=== PATIENT | male | born 1940 | race Caucasian/White ===

== ENCOUNTER 2025-01-03 15:29 | Outpatient (CLI) | payer MEDICARE, BC, SELFPAY | END 2025-01-03 15:30 | disposition home or self-care (01) | LOC: AMB 01-05 11:11 | PROVIDERS: PCP Physician Assistant; Visit Provider Internal Medicine | DX: R07.89 Other chest pain (principal) | CPT/HCPCS: A0425; A0433 ==

== ENCOUNTER 2025-01-03 16:05 | Emergency (ER) | payer MEDICARE, BC, SELFPAY ==
[2025-01-03 16:37] VITALS: BP 138/74; PULSE 50; RESP 18; TEMP 36.6; O2SAT 96
--- NOTE | 2025-01-03 16:47 | CRLHL7_ITS ---
For Patients: As a result of the Century Cures Act, medical imaging exams and procedure reports are released immediately into your electronic medical record. You may view this report before your referring provider. If you have questions, please contact your health care provider. INDICATION: Swelling around pacemaker site for 1 day. Pacemaker placed approximately 1 week ago. FINDINGS: The left upper anterior chest was scanned at the site of the pacemaker. There is a hematoma adjacent to the pacemaker that measures 7.3 x 6.1 x 3.6 cm. Dictated by Douglas Thomas MD @ 01/03/2025 6:50:07 PM (Electronically Signed)
--- NOTE | 2025-01-03 16:49 | ED.CHESTPAIN ---
HPI - Chest Pain General Chief Complaint: Chest Pain Stated Complaint: Chest Pains Time Seen by Provider: 01/03/25 16:05 History of Present Illness HPI narrative: Patient is an 84-year-old gentleman who had coronary stenting with pacemaker placement 1 week ago at [facility]. He has been doing fine with some localizes bruising over the pacemaker site but has now had swelling around the pacemaker as well as local discomfort. He has had no overt chest pain no nausea no vomiting no fevers no chills no signs of the infection. The pain does began several hours prior to arrival and the patient called for an ambulance and was brought by EMS after receiving IV fentanyl. He is now asymptomatic. He has a stable set of vital signs and is in no distress. Related Data Home Medications ?Medication ?Instructions ?Recorded ?Confirmed acetaminophen PO 01/03/25 amlodipine 5 mg tablet 5 mg PO BID 01/03/25 01/03/25 aspirin 81 mg capsule 81 mg PO DAILY 01/03/25 01/03/25 clopidogrel 75 mg tablet (Plavix) 75 mg PO DAILY 01/03/25 01/03/25 ezetimibe 10 mg tablet 10 mg PO DAILY 01/03/25 01/03/25 isosorbide mononitrate 60 mg 60 mg PO QAM 01/03/25 01/03/25 tablet,extended release 24 hr losartan 50 mg tablet (Cozaar) 50 mg PO DAILY 01/03/25 01/03/25 metoprolol tartrate 25 mg tablet 25 mg PO BID 01/03/25 01/03/25 nitroglycerin 0.4 mg sublingual 0.4 mg sublingual Q5-15M PRN 01/03/25 01/03/25 tablet rosuvastatin 40 mg sprinkle capsule 40 mg PO DAILY 01/03/25 01/03/25 Allergies Allergy/AdvReac Type Severity Reaction Status Date / Time No Known Drug Allergies Allergy Verified 01/03/25 16:37 Review of Systems Status of ROS Reports: 10 or more systems reviewed and unremarkable except as noted in History and below Exam Narrative Exam Narrative: EXAM GENERAL: Patient appears comfortable and well. EYES: No scleral icterus. ENT: Tympanic membranes and oropharynx normal. THYROID: no thyroid nodules or thyromegaly. LYMPH: No supraclavicular or cervical lymphadenopathy. SKIN: Visible skin seen during exam normal or with benign process only. EXT: No dependent lower extremity pedal edema. HEART: Regular rate and rhythm with no murmurs, rubs, or gallops. LUNGS: Clear to auscultation bilaterally with no crackles or wheezes. ABD: Soft, non tender, non distended. PSYCH: Good eye contact, speech is not pressured. Chest exam shows previous sternotomy from the distant past well as bruising and ecchymosis surrounding the pacemaker site in the left anterior chest. There is a large palpable seroma around the pacemaker site with no breakdown in the incision. Mild discomfort with palpation of the pacemaker. Const Vital Signs, click to edit/add: Vital Signs - 24 hr 01/03/25 16:37 Temperature 97.9 F Pulse Rate [Pulse Oximeter] 50 L Respiratory Rate 18 Blood Pressure [Right Upper Arm] 138/74 Pulse Oximetry 96 Oxygen Delivery Method Room Air Course Course ED Course: Did see and examine the patient. Did discuss the case with Cardiology. This time will collect blood cultures CBC basic metabolic panel and ultrasound of the chest wall. Vital Signs Vital signs: Initial Vital Signs Temperature 97.9 F 01/03/25 16:37 Temperature Source Temporal Artery Scan 01/03/25 16:37 Pulse Rate 50 L 01/03/25 16:37 Pulse Rhythm Regular 01/03/25 16:37 Respiratory Rate 18 01/03/25 16:37 Blood Pressure 138/74 01/03/25 16:37 Blood Pressure Mean 95 01/03/25 16:37 Blood Pressure Position Sitting 01/03/25 16:37 Pulse Oximetry 96 01/03/25 16:37 Oxygen Delivery Method Room Air 01/03/25 16:37 Vital Signs Temperature 97.9 F 01/03/25 16:37 Pulse Rate 50 L 01/03/25 16:37 Respiratory Rate 18 01/03/25 16:37 Blood Pressure 138/74 01/03/25 16:37 Pulse Oximetry 96 01/03/25 16:37 Oxygen Delivery Method Room Air 01/03/25 16:37 Temperature 97.9 F 01/03/25 16:37 Pulse Rate 50 L 01/03/25 16:37 Respiratory Rate 18 01/03/25 16:37 Blood Pressure 138/74 01/03/25 16:37 Pulse Oximetry 96 01/03/25 16:37 Oxygen Delivery Method Room Air 01/03/25 16:37 MDM - Chest Pain MDM Narrative Medical decision making narrative: Patient is an 84-year-old gentleman who presents with pain at his pacemaker site which was placed 1 week ago. Patient is on aspirin and Plavix as he had angioplasty with stenting at the same time. Patient has had no overt chest pain shortness a breath fevers or chills but is having mild discomfort and swelling of the pacemaker site. The pacemaker site is distended but there is no signs of infection only bruising and fluctuance. No skin breakdown no erythema. I did call and visit with [facility] and they recommended blood cultures which were collected. CBC showing normal white blood cell count and a stable hemoglobin of 10.1. Ultrasound was of limited utility but did show what appears to be a seroma versus hematoma. Per cardiology's recommendation patient will be released back to [address] [place] [address]. Will continue his current care and follow-up with Cardiology by phone next week. Lab Data Labs: Lab Results 01/03/25 Range/Units 16:47 WBC 8.55 (4.50-11.00) K/uL RBC 3.53 L (4.30-5.90) m/uL Hgb 10.1 L (13.5-17.5) gm/dL Hct 31.5 L (37.0-53.0) % MCV 89 (80-100) fL MCH 29 (26-34) pg MCHC 32 (32-36) gm/dL RDW Coeff of Lobo 12.7 (11.5-15.5) % Plt Count 203 (140-440) K/uL Neut % (Auto) 55.1 (42.0-72.0) % Lymph % (Auto) 26.9 (20-44) % [place] % (Auto) 14.2 H (0.0-11.0) % Eos % (Auto) 3.0 (0.0-7.0) % Baso % (Auto) 0.7 (0.0-3.0) % Neut # (Auto) 4.71 (1.7-7.0) K/uL Lymph # (Auto) 2.30 (0.90-2.90) K/uL [place] # (Auto) 1.20 H (0.00-0.90) K/UL Eos # (Auto) 0.26 (0.00-0.50) K/uL Baso # (Auto) 0.06 (0.00-0.30) K/uL Abs Immat Gran (auto) 0.01 (0.00-0.30) K/uL Imm/Tot Granulo (auto) 0.1 % Sodium 139 (135-149) mmol/L Potassium 4.3 (3.6-5.1) mmol/L Chloride 106 (96-114) mmol/L Carbon Dioxide 24 (20-32) mmol/L Anion Gap 9 (7-15) mEq/L BUN 19 (7-30) mg/dL Creatinine 1.0 (0.5-1.5) mg/dL Estimated Creat Clear 46.13 Estimated GFR 73 ml/min Glucose 91 (60-115) mg/dL Calcium 8.6 (8.4-10.6) mg/dL Discharge Plan Discharge Clinical Impression: Pain in pacemaker pocket Patient Disposition: Home, Self-Care Condition: Stable Additional Instructions: Continue current rehab Continue current medication. Contact Cardiology on Sunday to report the swelling Up with your doctor as needed. Activity Level: No Restrictions Discharge Diet: Regular Prescriptions: No Action acetaminophen [Tylenol] PO isosorbide mononitrate 60 mg tablet extended release 24 hr 60 mg PO QAM metoprolol tartrate 25 mg tablet 25 mg PO BID amlodipine 5 mg tablet 5 mg PO BID clopidogrel [Plavix] 75 mg tablet 75 mg PO DAILY aspirin 81 mg capsule 81 mg PO DAILY ezetimibe 10 mg tablet 10 mg PO DAILY losartan [Cozaar] 50 mg tablet 50 mg PO DAILY rosuvastatin 40 mg capsule, sprinkle 40 mg PO DAILY nitroglycerin 0.4 mg tablet, sublingual 0.4 mg sublingual Q5-15M PRN Rx Instructions: do not exceed 3 doses per episode Follow Up/Referrals: Al Harley PA [Primary Care Provider] - Stand Alone Forms: [employer] Info Instructions
[2025-01-03 17:05] LABS: Basophils Absolute Auto 0.06 K/uL (0.00-0.30); Basophils Percent Auto 0.7 % (0.0-3.0); Eosinophils Absolute Auto 0.26 K/uL (0.00-0.50); Hematocrit 31.5 % (37.0-53.0); Hemoglobin* 10.1 gm/dL (13.5-17.5); Immature Granulocytes Abs Auto 0.01 K/uL (0.00-0.30); Immature Granulocytes Pct Auto 0.1 %; Lymphocytes Percent Auto 26.9 % (20-44); Mean Corpuscular HGB Conc 32 gm/dL (32-36); Mean Corpuscular Hemoglobin 29 pg (26-34); Mean Corpuscular Volume 89 fL (80-100); Monocytes Percent Auto 14.2 % (0.0-11.0); Neutrophils Absolute Auto 4.71 K/uL (1.7-7.0); Neutrophils Percent Auto 55.1 % (42.0-72.0); Platelet Count* 203 K/uL (140-440); RDW Coefficient of Variation % 12.7 % (11.5-15.5); Red Blood Count 3.53 m/uL (4.30-5.90); White Blood Count* 8.55 K/uL (4.50-11.00)
[2025-01-03 17:06] LABS: Slide Review Reflex No
[2025-01-03 17:21] LABS: Chloride* 106 mmol/L (96-114); Sodium* 139 mmol/L (135-149)
[2025-01-03 17:22] LABS: Potassium* 4.3 mmol/L (3.6-5.1)
[2025-01-03 17:24] LABS: Blood Urea Nitrogen* 19 mg/dL (7-30); Est. Creatinine Clearance* 46.13; Estimated Glomerular Filt Rate 73 ml/min
[2025-01-03 17:25] LABS: Anion Gap 9 mEq/L (7-15); Calcium* 8.6 mg/dL (8.4-10.6); Carbon Dioxide* 24 mmol/L (20-32); Glucose* 91 mg/dL (60-115)
--- OUTSIDE RECORDS SUMMARY | 2025-01-03 17:49 | XMS_ITS | Encounter Summary ---
Author Organization [facility] Address [address] [place] [address] Care Team Providers Care Sandal Parts Assembler Name Role Phone Outside, Provider Primary Care Provider Unavaila ble Provider, No Attributed RESOURCE Unavailable Unavailable Outside, Provider Primary Care Provider Unavaila ble Encounter Details Date Type Department Care Team (Late st Contact Info) Description 01/16/2018 Lab Requisition [facility] [place], [place] Joao Spencer MD [address] [place] [address] Retention of urine Social History Tobacco Use Types Packs/Day Years Used Date Smoking Tobacco: Former Cigarettes Q uit: 09/10/1959 Alcohol Use Standard Drinks/Week Comments No 0 (1 standard drink = 0.6 oz pur e alcohol) Sex and Gender Information Value Date Recorded Sex Assigned at Not on file Legal Sex Male 4:05 AM CDT Gender Identity Not on file Sexual Orientation Not on file 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 01/17/2018 11:[address] [facility] CLINIC at 1151 CDT GROSS DESCRIPTION Received is one formalin filled container labeled prostate tissue. The specimen consists of a 19 gram, 8.5 x 6.5 x 2.3 cm aggregate of velasquez-pink, rubbery, slightly granular, and irregular fragments of prostate. (ESB)11B Gross examination performed by: Eren Horvath 01/17/2018 11:[address] [facility] PATHOLOGY [facility] MICROSCOPIC DESCRIPTION Microscopic examination performed. 01/17/2018 11:[address] [facility] PATHOLOGY [facility] Clinical Information Benign prostate hypertrophy with urinary retention 01/17/2018 11:[address] [facility] PATHOLOGY [facility] CASE REPORT Surgical Pathology Report Case: [id number] Authorizing Provider: Joao Spencer MD Collected: 01/15/2018 Pathologist: uYniel Baker MD Received: 01/16/2018821 Specimen: Prostate, prostate tissue 01/17/2018 11:[address] [facility] PATHOLOGY CLINIC EMBEDDED IMAGES 01/17/2018 11:[address] [facility] PATHOLOGY [facility] Tissue SPECIMEN FROM PROSTATE / Unknown 01/15/2018 01/16/2018 8:22 AM T us Joao Spencer MD PATHOLOGY Final R esult Performing Organization Address City/State/[facility] Co de Phone Number [facility] PATHOLOGY [facility] [address] [address] documented in this encounter Visit Diagnoses Diagnosis Retention of urine Retention of urine, unspecified documented in this encounter Care Teams Sandal Parts Assembler Relationship Specialty Start Date End Date Outside, Provider PCP - General 05/20/12 08/03/19 Provider, No Attributed, RESOURCE [address] [place] [address] PCP - Attributed Provider 07/11/16 Outside, Provider PCP - General 08/04/19 documented as of this encounter
--- OUTSIDE RECORDS SUMMARY | 2025-01-03 17:49 | XMS_ITS | Clinical Summary ---
Author Organization [facility] [employer] [facility] Address [address] [address] Phone Care Team Providers Care Cardboard Cutter Name Role Phone Erendira Dotson MD Primary Care Provider [phone] Medications aspirin 81 MG chewable tablet Chew and swallow 1 Tablet one time a day. Take with food. 30 Tablet 2 08/30/2022 Active amLODIPine (Norvasc) 10 MG tablet Take 1 Tablet by mouth one time a day. 90 Tablet 1 10/18/2022 Active atorvaSTATin (Lipitor) 80 MG tablet Take 1 Tablet by mouth with supper. 90 Tablet 1 10/18/2022 Active clopidogrel (Plavix) 75 MG tablet Take 1 Tablet by mouth one time a day. 90 Tablet 3 10/18/2022 Active lisinopril (Prinivil, Zestril) 10 MG tablet Take 1 Tablet by mouth one time a day. 90 Tablet 1 10/18/2022 Active Tragacanth (Astragalus Root) Powder Active Cholecalciferol (Vitamin D3) 125 MCG (5000 UT) Tablet Chewable Take by mouth. 1 unit of Vitamin D equals 0.025 mcg of Vitamin D Active Chelated Magnesium 100 MG Tablet Take by mouth. Active [facility] TURMERIC CURCUMIN OR Take by mouth. Active [place]-3 Fatty Acids (fish oil) 1000 MG CAPSULE DELAYED RELEASE Take 1,000 mg by mouth one time a day. Active Zinc Gluconate 30 MG Tablet Take by mouth. Active isosorbide mononitrate CR (Imdur) 30 MG 24 hour tablet Take 1 Tablet by mouth one time a day. Do not crush. 31 Tablet 11 03/30/2023 Active nitroglycerin (Nitrostat) 0.[address] 1 Tablet under the tongue as needed for Chest pain. Do not crush; maximum of 3 doses in 15 minutes. 25 Tablet 3 03/30/2023 Active ezetimibe (Zetia) 10 MG tablet Take 1 Tablet by mouth one time a day. bedtime 31 Tablet 11 06/05/2023 Active NEW DRUG 1 Each. Red Grape Powder 400mg 1 tablet daily Active Active Problems Problem Noted Date Diagnosed Date Hx of non-ST elevation myocardial infarction (NS TING) 10/18/2022 Hypertension, unspecified type 10/18/2022 NSTEMI (non-ST elevated myocardial infarction) 1 10/28/2021 Immunizations Name Administration Dates Next Due TD >7yrs With Preservative 12/17/1996 Surgical History Surgery Date Site/Laterality Comments CABG, VEIN, SINGLE CARDIAC CATHETERIZATION 08/28/2022 N/A Procedure: LHC, CORONARY ANGIOGRAPHY; Surgeon: Altaf Garcia MD; Location: [address] OTHER SPATIAL SCIENTIST Medical devices from this surgery are in the Medical Devices section. CARDIAC CATHETERIZATION 08/28/2022 N/A Procedure: PCI - Graft; Surgeon: Altaf Garcia MD; Location: [address] OTHER SPATIAL SCIENTIST Medical devices from this surgery are in the Medical Devices section. 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 Gender Identity Not on file Sexual Orientation Not on file Obstetrics History Last Filed Vital Signs Vital Sign Reading Time Taken Comments Blood Pressure 163/88 01/23/2024 12:51 PM CDT Pulse 61 01/23/2024 12:48 PM CDT Temperature 36.3 C (97.4 F) 08/29/2022 10:03 AM SEPTIC TANK INSTALLER Respiratory Rate 16 01/23/2024 12:48 PM CDT Oxygen Saturation 97% 01/23/2024 12:48 PM CDT Inhaled Oxygen Concentration - - Weight 72.3 kg (159 lb 8 oz) 01/23/2024 12:48 PM CDT Height 180.3 cm (5' 11) 01/23/2024 12:48 PM CDT Body Mass Index 22.25 01/23/2024 12:48 PM CDT Plan of Treatment Health Maintenance Due Date Last Done Comments MEDICARE AWV 1938 PERTUSSIS (Standing Order) 1957 Pneumococcal Vaccine: 50+ yr s (Standing Order) (1 of 1 - PCV) 1988 Shingrix (Zoster recombinant ) vaccine (Standing Order) (1 of 2) 1988 TETANUS (Standing Order) 12/17/2006 12/17/1996 RSV Vaccination (60+ yrs) (Abrysvo/Arexvy) (1 - 1-dose 75+ series) 2013 COVID-19 Vaccine (2023-2 5 season) 2024 Influenza Vaccine Seasonal (Standing Order) (#1) 2024 HPV Vaccine (Standing Order) Aged Out No longer eligible based on patient's age to complete this topic Hepatitis B Vaccine (Standin g Order) Aged Out No longer eligible b ased on patient's age to complete this topic Medical Devices Implanted Type Area Bill Of Lading Clerk Device Identifier Shelf Expiration Date Model / Serial / Lot Stent Synergy Xd Mr 4.00 X48mm [id number] - [id number] Implanted:Qt y: 1 on 08/28/2022 by Altaf Garcia MD at [facility] Stent COURTNEY N/A: Coronary [employer] [id number] 11/30/2023 [id number] / [id number] / [id number] Insurance [employer] BCBS MEDICARE PART A & B Advance Directives For more information, please contact: [phone] * Full Code (Latest Code Status on File) Date Activated Date Inactivated Comments 08/28/2022 1:39 PM 08/29/2022 4:20 PM * Full Code/Unaddressed Date Activated Date Inactivated Comments 08/27/2022 8:00 AM 08/28/2022 1:39 PM Care Teams Cardboard Cutter Relationship Specialty Start Date End Date Erendira Dotson MD [address] [facility] [place] [address] PCP - General Family Medicine 10/18/22
--- OUTSIDE RECORDS SUMMARY | 2025-01-03 17:49 | XMS_ITS | Clinical Summary ---
Author Organization [facility] Address [address] [place] [id number] Care Team Providers Care Career Professional Name Role Phone Marvin Harley Primary Care Provid er Allergies No known active allergies Medications nitroglycerin (NITROSTAT) 0.4 mg sublingual tabletIndicatio ns:History of non-ST elevation myocardial infarction (NSTEMI) Place 1 Tablet (0.4 mg) under the tongue every 5 minutes if needed for Chest Pain. Up to 3 tablets in 15 minutes. 25 Tablet 08/20/20 24 Active aspirin chewable 81 mg chewable tablet Chew 81 mg by mouth once daily with a meal. Active cholecalciferol (Vitamin D3) (Vitamin D-3) 5,000 unit tab tablet Take 5,000 units by mouth once daily. Active BETA-GLUCAN ORAL Take by mouth once daily. Active Lactobacillus acidophilus (PROBIOTIC ORAL) Take 1 Capsule by mouth once daily. Active RED BEET ORAL Take by mouth once daily. Beet Mix supplement Active RIBOSE ORAL Take by mouth once daily. D-Ribose supplement Active clopidogreL 75 mg tabletIndicatio ns:NSTEMI (non-ST elevated myocardial infarction) (HC) Take 1 Tablet (75 mg) by mouth once daily. 90 Tablet 3 12/27/19 25 Active ezetimibe 10 mg tabletIndicatio ns:NSTEMI (non-ST elevated myocardial infarction) (HC) Take 1 Tablet (10 mg) by mouth once daily. 90 Tablet 3 12/27/19 25 Active rosuvastatin 40 mg tabletIndicatio ns:NSTEMI (non-ST elevated myocardial infarction) (HC) Take 1 Tablet (40 mg) by mouth at bedtime. 90 Tablet 3 12/26/19 25 Active amLODIPine 5 mg tabletIndicatio ns:HTN (hypertension), Coronary artery disease 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[place] heart without angina pectoris Take 1 Tablet (5 mg) by mouth two times daily. 180 Tablet 1 12/26/19 25 Active isosorbide mononitrate 60 mg extended release tablet 24 hourIndications :Coronary artery disease 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[place] heart without angina pectoris Take 1 Tablet (60 mg) by mouth once daily. 90 Tablet 1 12/27/19 25 Active losartan 50 mg tabletIndicatio ns:NSTEMI (non-ST elevated myocardial infarction) (HC),HTN (hypertension) Take 1 Tablet (50 mg) by mouth once daily. 90 Tablet 1 12/27/19 25 Active metoprolol tartrate 25 mg tabletIndicatio ns:NSTEMI (non-ST elevated myocardial infarction) (HC) Take 1 Tablet (25 mg) by mouth two times daily. 90 Tablet 3 12/29/19 25 Active hydrocortisone 1 % creamIndication s:Contact dermatitis, unspecified contact dermatitis type, unspecified trigger Apply topically to affected area(s) 2 times daily if needed for Itching for up to 7 days. 12/31/19 25 025 Active amLODIPine 10 mg tablet 10 mg once daily. 025 Discontinued( Pharmacist change per medication history (E-cancel not sent)) atorvastatin 80 mg tablet Take 80 mg by mouth once daily with evening meal. 025 Discontinued( Pharmacist change per medication history (E-cancel not sent)) clopidogreL 75 mg tablet Take 75 mg by mouth once daily. 025 Discontinued( Pharmacist change per medication history (E-cancel not sent)) lisinopriL 10 mg tablet Take 10 mg by mouth once daily. 025 Discontinued( Pharmacist change per medication history (E-cancel not sent)) Tragacanth powd Mix in liquid then take by mouth. 025 Discontinued( Pharmacist change per medication history (E-cancel not sent)) magnesium glycinate 100 mg magnesium cap Take 100 mg by mouth once daily. 025 Discontinued( Pharmacist change per medication history (E-cancel not sent)) turmeric/turmer ic ext/pepr ext (turmeric-turme alec ext-pepper) 500-3 mg cap Take 1 Capsule by mouth once daily. 025 Discontinued( Pharmacist change per medication history (E-cancel not sent)) fish oil-omega-3 fatty acids (Fish OiL) 1,200-360 mg cap Take 1 Capsule by mouth once daily. One capsule is 1200 mg-360 mg 025 Discontinued( Pharmacist change per medication history (E-cancel not sent)) isosorbide mononitrate 30 mg extended release tablet 24 Hour Take 30 mg by mouth once daily. 025 Discontinued( Pharmacist change per medication history (E-cancel not sent)) ezetimibe 10 mg tablet Take 10 mg by mouth once daily. 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 12/08/2024 S/P TURP 12/08/2024 History of non-ST elevation myocardial infarctio n (NSTEMI) 10/22/2024 Coronary artery disease invo lving [place] coronary artery of [place] heart without angina pectoris 10/22/2024 Mixed hyperlipidemia 10/22/2024 HTN (hypertension) 10/22/2024 Hx of non-ST elevation myocardial infarction (NS TING) 10/18/2022 Hypertensive disease 10/18/2022 NSTEMI (non-ST elevated myocardial infarction) 1 10/28/2021 Hydrocele 11/18/2007 Resolved Problems Problem Noted Date Diagnosed Date Resolved Date 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 08/20/2024 Encounters Date Type Department Care Team Description 01/03/2025 Telephone [facility] [address] [place] [address] FIDEL Ortiz [id number] Eduard Arrieta MD 12/27/2024 9:17 AM CDT Anesthesia Event [facility] [address] [place], [place] [id number] Brant Marcus DO 12/23/2024 1:42 AM CDT - 12/30/2024 9:58 AM CDT Hospital Encounter [facility] [address] [place] [address] [facility]ists Of [place], MD Henry Delgadillo Timothy Joseph Ngui, MD Schultz, Lorraine Luna MD NSTEMI (non-ST elevated myocardial infarction) (HC) (Primary Dx); Cardiovascular symptoms; HTN (hypertension); Coronary artery disease 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[place] heart without angina pectoris; Contact dermatitis, unspecified contact dermatitis type, unspecified trigger Discharge Disposition: Longterm Facility 12/22/2024 5:08 PM CDT - 12/23/2024 12:41 AM CDT Emergency [facility] [address] [place] [address] Bozena Burden MD Patullo, Leah Vivian, DO NSTEMI (non-ST elevated myocardial infarction) (HC) (Primary Dx); Chest pain, unspecified type Discharge Disposition: Short Term/PPS Hosp 12/22/2024 Travel 12/16/2024 Telephone [facility] [id number] [place] [id number] Vickie Yoo MD Results 12/11/2024 2:45 PM CDT Office Visit [facility] [id number] [place] [id number] Vickie Yoo MD Derm Problem 12/11/2024 Travel 12/08/2024 3:00 PM CDT Office Visit [facility] [address] [place] [address] Gentry Hernández MD Consult (Establish Care/History of TURP) 12/08/2024 Travel 10/22/2024 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 Office Visit [facility] [address] [place] [address] Laurent Trejo MD Consult 10/22/2024 Travel from Last 3 Months Immunizations Immunization Administration Dates Next Due Td (Age >=7 Years) 12/17/1996 Social History Tobacco Use Types Packs/Day Years Used Date Smoking Tobacco: Former Cigarettes S tarted: 1948 Smokeless Tobacco: Never Tobacco Cessation:Counseling Given: Not Answered Alcohol Use Standard Drinks/Week Comments Not Currently 0 (1 standard drink = 0.6 oz pur e alcohol) Social Connections Answer Date Recorded Do you often feel lonely or isolated from those around you? 0 2024 Financial Resource Strain Answer Date R ecorded Difficulty of Paying Living Expenses 3 08/20/2024 Difficulty of Paying Living Expenses Not on file 08/20/2024 Food Insecurity Answer Date Recorded Do you worry your food will run out before you are able to buy more? 1 2024 Transportation Needs Answer Date Record ed Does lack of transportation keep you from medica l appointments? 1 2024 Does lack of transportation keep you from work, meetings or getting things that you need? 1 2024 Housing Stability Answer Date Recorded What is your housing situation today? 1 2024 Interpersonal Safety Answer Date Record ed Are you being hit, kicked, p ushed or yelled at (see row info)? No 12/22/2024 Interpersonal Safety Abuse 12 - 18 Not on file 12/22/2024 Interpersonal Safety Ambulatory Vulnerability No t on file 12/22/2024 Utilities Answer Date Recorded Do you have trouble paying f or utilities (for example, heat, electricity, water, phone)? 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 Gender Identity Not on file Sexual Orientation Not on file Obstetrics History Last Filed Vital Signs Vital Sign Reading Time Taken Comments Blood Pressure 140/69 12/30/2024 8:55 AM CDT Pulse 51 12/30/2024 7:26 AM CDT Temperature 36.1 C (97 F) 12/30/2024 7:26 AM CDT Respiratory Rate 18 12/30/2024 7:26 AM CDT Oxygen Saturation 93% 12/30/2024 7:26 AM CDT Inhaled Oxygen Concentration - - Weight 67.3 kg (148 lb 5.9 oz) 12/30/2024 5:02 A M CDT Height 177.8 cm (5' 10) 12/22/2024 5:14 PM CDT Body Mass Index 21.29 12/22/2024 5:14 PM CDT Plan of Treatment Upcoming Encounters Date Type Department Care Team (Late st Contact Info) Description 01/29/2025 11:00 AM CDT Office Visit [facility] [address] [place] [address] Case, RAHDA Hairston [address] [facility] [address] [place] [address] 03/03/2025 Cardiac Device Check [facility] [phone] 05/20/2025 11:30 AM CDT Cardiac Device Check [facility] at [address] [address] Health Maintenance Due Date Last Done Comments Tdap 1951 Depression screening for age 12+ 1950 Pneumococcal series for age 50+ (1 of 2 - PCV) 958 Zoster (shingles) series for age 50+ (1 of 2) 12/25/18 89 Medicare Wellness for age 65+ 12/26/2003 Tetanus booster 12/17/2006 12/17/1996 RSV vaccine for adults or pr egnancy (1 - 1-dose 75+ series) 2013 COVID-19 vaccine series ( season) Influenza Vaccine (Season Ended) 2025 BMI (ht and wt on same day) for age 18+ 08/20/2025 1 10/21/2023 Procedures Procedure Name Priority Date/Time Associated Diagnosis Comments SCAN-CARDIAC STRIP 12/30/2024 7: 29 AM CDT MAGNESIUM Early AM 12/30/2024 7:16 AM CDT HEMOGLOBIN Early AM 12/30/2024 7:16 AM CDT BASIC METABOLIC PANEL Early AM 12/30/2024 7:16 AM CDT URINALYSIS MICROSCOPIC Timed 12/30/2024 2:58 AM CDT UA W/ SEDIMENT EXAM REFLEXED PER CRITERIA Today 12/30/2024 2:58 AM CDT SCAN-CARDIAC STRIP 12/29/2024 7: 34 PM CDT SCAN-CARDIAC STRIP 12/29/2024 3: 24 PM CDT POTASSIUM CANDIE 12/29/2024 1:33 PM CDT CREATININE Today 12/29/2024 1:33 PM CDT SCAN-CARDIAC STRIP 12/29/2024 8: 50 AM CDT SCAN-CARDIAC STRIP 12/29/2024 5: 17 AM CDT SCAN-CARDIAC STRIP 12/28/2024 10 :18 PM CDT PACER ROLF DUAL CHAMBER WO REPROG Routine 12/28/2024 7:08 AM CDT XR CHEST 2 VIEWS PA AND LATERAL Routine 12/28/2024 6:27 AM CDT CREATININE CANDIE 12/28/2024 5:56 AM CDT POTASSIUM Early AM 12/28/2024 5:56 AM CDT SCAN-CARDIAC STRIP 12/28/2024 5: 00 AM CDT SCAN-CARDIAC STRIP 12/27/2024 10 :06 PM CDT EP PPM Routine 12/27/2024 9:50 AM CDT SCAN-CARDIAC STRIP 12/27/2024 7: 48 AM CDT CBC WITH AUTO DIFFERENTIAL Early AM 12/27/2024 7:15 AM CDT CBC WITH AUTO DIFFERENTIAL Early AM 12/27/2024 7:15 AM CDT SCAN-CARDIAC STRIP 12/27/2024 3: 00 AM CDT SCAN-CARDIAC STRIP 12/26/2024 8: 12 PM CDT POTASSIUM Early AM 12/26/2024 6:48 AM CDT SCAN-CARDIAC STRIP 2024 4: 15 PM CDT EKG 12 LEAD STAT 2024 1:31 PM CDT POTASSIUM Early AM 2024 7:03 AM CDT MAGNESIUM Early AM 2024 7:03 AM CDT SCAN-CARDIAC STRIP 12/24/2024 4: 31 PM CDT URINALYSIS MICROSCOPIC Timed 12/24/2024 10:38 AM CDT UA W/ SEDIMENT EXAM REFLEXED PER CRITERIA Today 12/24/2024 10:38 AM CDT SCAN-CARDIAC STRIP 12/24/2024 8: 07 AM CDT BASIC METABOLIC PANEL Early AM 12/24/2024 6:41 AM CDT CBC W PLT NO DIFF Early AM 12/24/2024 6:4 1 AM CDT LIPID PANEL Early AM 12/24/2024 6:41 AM CDT MAGNESIUM Early AM 12/24/2024 6:41 AM CDT SCAN-CARDIAC STRIP 12/24/2024 2: 52 AM CDT SCAN-CARDIAC STRIP 12/23/2024 5: 55 PM CDT ECHO TTE LIMITED WO CONTRAST W COLOR W LTD DOPPLER Routine 12/23/2024 5:54 PM CDT EKG 12 LEAD CANDIE 12/23/2024 4:44 PM CDT HCHG ACTIVATED CLOTTING TM CV Timed 12/23/2024 3:31 PM CDT CVL CORONARY ANGIOGRAM POSS PCI Routine 12/23/2024 3:20 PM CDT Cardiovascular symptoms CVL CORONARY ANGIOGRAM POSS PCI Routine 12/23/2024 3:20 PM CDT Cardiovascular symptoms SCAN-CARDIAC STRIP 12/23/2024 11 :40 AM CDT SCAN-CARDIAC STRIP 12/23/2024 11 :40 AM CDT EKG 12 LEAD Early AM 12/23/2024 11:14 AM CDT HCHG ACTIVATED CLOTTING TM CV Timed 12/23/2024 9:43 AM CDT HCHG ACTIVATED CLOTTING TM CV Timed 12/23/2024 9:16 AM CDT HCHG ACTIVATED CLOTTING TM CV Timed 12/23/2024 8:35 AM CDT SCAN-CARDIAC STRIP 12/23/2024 7: 23 AM CDT EKG 12 LEAD CANDIE 12/23/2024 7:04 AM CDT APTT Early AM 12/23/2024 6:27 AM CDT MAGNESIUM Early AM 12/23/2024 6:27 AM CDT POTASSIUM Early AM 12/23/2024 6:27 AM CDT LIPID PANEL Early AM 12/23/2024 6:27 AM CDT TROPONIN T (HS) ONE TIME Timed 12/23/2024 4:33 AM CDT SCAN-CARDIAC STRIP 12/23/2024 4: 10 AM CDT EKG 12 LEAD STAT 12/23/2024 3:13 AM CDT TROPONIN T (HS) ACUTE W/2HR REFLEX STAT 12/23/2024 2:23 AM CDT HEMOGLOBIN CANDIE 12/23/2024 2:23 AM CDT PLATELET COUNT CANDIE 12/23/2024 2:23 AM CDT APTT CANDIE 12/23/2024 2:23 AM CDT PROTIME-INR CANDIE 12/23/2024 2:23 AM CDT SCAN-CARDIAC STRIP 12/23/2024 12 :00 AM CDT TROPONIN T (HS) ONE TIME Timed 12/22/2024 7:18 PM CDT XR CHEST 2 VIEWS PA AND LATERAL STAT 12/22/2024 6:17 PM CDT EKG 12 LEAD STAT 12/22/2024 5:38 PM CDT HEMOGLOBIN A1C CANDIE 12/22/2024 5:17 PM CDT PROTIME-INR CANDIE 12/22/2024 5:17 PM CDT APTT CANDIE 12/22/2024 5:17 PM CDT HEPATIC FUNCTION PANEL CANDIE 12/22/2024 5:17 PM CDT LIPASE CANDIE 12/22/2024 5:17 PM CDT CBC WITH AUTO DIFFERENTIAL STAT 12/22/2024 5:17 PM CDT TROPONIN T (HS) ACUTE W/2HR REFLEX STAT 12/22/2024 5:17 PM CDT BASIC METABOLIC PANEL STAT 12/22/2024 5:17 PM CDT CBC WITH AUTO DIFFERENTIAL STAT 12/22/2024 5:17 PM CDT PATH TISSUE EXAM Routine 12/11/2024 3:00 PM CDT Neoplasm of uncertain behavior from Last 3 Months Results * SCAN-CARDIAC STRIP (12/30/2024 7:29 AM CDT) us Scanner OTHER Final Result * (ABNORMAL) HEMOGLOBIN (12/30/2024 7:16 AM CDT) Only the most recent of2 resultswithin the time period is included. Pathologist [facility] HEMOGLOBIN 11.4(L) 13.5 - 17.5 g/dL 12/30/2024 7:26 AM CDT [facility] MCV 88 80 - 100 fL 12/30/2024 7:26 AM CDT [facility] Blood BLOOD SPECIMEN / Unknown Venipuncture / Unknown 12/30/2024 7:16 AM CDT 12/30/2024 7:21 AM CDT Lorraine Aceves MD HEMATOLOGY Final Res ult Performing Organization Address City/[facility]/ZIP Co de Phone Number [facility] [address] [place] [address], [place] * MAGNESIUM (12/30/2024 7:16 AM CDT) Only the most recent of4 resultswithin the time period is included. Pathologist [facility] MAGNESIUM 2.1 1.6 - 2.4 mg/dL 12/30/2024 8:29 AM CDT [facility] Blood BLOOD SPECIMEN / Unknown Venipuncture / Unknown 12/30/2024 7:16 AM CDT 12/30/2024 7:21 AM CDT Lorraine Aceves MD CHEMISTRY Final Res ult Performing Organization Address City/[facility]/ZIP Co de Phone Number [facility] [address] [place] [address], [place] * (ABNORMAL) BASIC METABOLIC PANEL (12/30/2024 7:16 AM CDT) Only the most recent of3 resultswithin the time period is included. Pathologist [facility] SODIUM 141 136 - 145 mmol/L 12/30/2024 8:29 AM CDT [facility] POTASSIUM 4.5 3.5 - 5.1 mmol/L 12/30/2024 8:29 AM CDT [facility] CHLORIDE 108(H) 98 - 107 mmol/L 12/30/2024 8:29 AM T [facility] CO2,TOTAL 24 22 - 29 mmol/L 12/30/2024 8:29 AM T [facility] ANION GAP 9 5 - 18 12/30/2024 8:29 AM T [facility] GLUCOSE 82 70 - 99 mg/dL 12/30/2024 8:29 AM T [facility] CALCIUM 8.8 8.8 - 10.4 mg/dL 12/30/2024 8:29 AM [facility] Comment: Reference ranges for this test were updated on 07/15/2024 to reflect our healthy population more accurately. Reference range changes are not retroactively applied to results, but previous results using the same methodology can be interpreted in the context of the new reference range. BUN 20 8 - 23 mg/dL 12/30/2024 8:[address] [facility] CREATININE 1.05 0.70 - 1.20 mg/dL 12/30/2024 8:[address] [facility] BUN/CREAT RATIO 19 10 - 20 8:29 AM [facility] eGFR 69(L) >90 mL/min/1. 73m2 12/30/2024 8:[address] [facility] Comment:As of 2021, eG FR is calculated by the CKD-EPI creatinine equation without race adjustment. eGFR can be influenced by muscle mass, exercise, and diet. The reported eGFR is an estimation only and is only applicable if the renal function is stable. Blood BLOOD SPECIMEN / Unknown Venipuncture / Unknown 12/30/2024 7:16 AM CDT 12/30/2024 7:21 AM CDT us Lorraine Aceves MD CHEMISTRY Final Res ult [facility] [address] [address], [place] * URINALYSIS MICROSCOPIC (12/30/2024 2:58 AM CDT) Only the most recent of2 resultswithin the time period is included. RBC 0-2 0-2, None Seen /HPF 12/30/2024 3:27 AM CDT [facility] WBC 0-2 0-2, 3-5, None Seen /HPF 12/30/2024 3:27 AM CDT [facility] BACTERIA None Seen None Seen, Rare, Few Bacteria/ HPF 12/30/2024 3:27 AM CDT [facility] EPITHELIAL CELLS None Seen None Seen, Few Epi/HPF 12/30/2024 3:27 AM CDT [facility] HYALINE CASTS 0-2 0-2, 3-5 /LPF 12/30/2024 3:27 AM CDT [facility] Urine URINE SPECIMEN / Unknown Non-Blood / Unknown 12/30/2024 2:58 AM CDT 12/30/2024 3:09 AM CDT us Lorraine Aceves MD URINE Final Res ult [facility] [address] [address], [place] * (ABNORMAL) UA W/ SEDIMENT EXAM REFLEXED PER CRITERIA (12/30/2024 2:58 AM CDT) Only the most recent of2 resultswithin the time period is included. COLOR Yellow Yellow Color 12/30/2024 3:27 AM CDT [facility] CLARITY Clear Clear Clarity 12/30/2024 3:27 AM CDT [facility] SPECIFIC GRAVITY,URINE 1.010 1.010, 1.015, 1.020, 1.025 12/30/2024 3:27 AM CDT [facility] PH,URINE 6.5 6.0, 7.0, 8.0, 5.5, 6.5, 7.5, 8.5 12/30/2024 3:27 AM CDT [facility] UROBILINOGEN, QUALITATIVE Normal Normal EU/dl 12/30/2024 3:27 AM CDT [facility] PROTEIN, URINE Negative Negative mg/dL 12/30/2024 3:27 AM CDT [facility] GLUCOSE, URINE Negative Negative mg/dL 12/30/2024 3:27 AM CDT [facility] KETONES,URINE Negative Negative mg/dL 12/30/2024 3:27 AM CDT [facility] BILIRUBIN,URI NE Negative Negative 12/30/2024 3:27 AM CDT [facility] OCCULT BLOOD,URINE Negative Negative 12/30/2024 3:27 AM CDT [facility] NITRITE Negative Negative 12/30/2024 3:27 AM CDT [facility] LEUKOCYTE ESTERASE Small(A) Negative 12/30/2024 3:27 AM CDT [facility] Urine URINE SPECIMEN / Unknown Non-Blood / Unknown 12/30/2024 2:58 AM CDT 12/30/2024 3:09 AM CDT us Lorraine Aceves MD URINE Final Res ult [facility] [address] [place] [id number], [place] * SCAN-CARDIAC STRIP (12/29/2024 7:34 PM CDT) us Scanner OTHER Final Result * SCAN-CARDIAC STRIP (12/29/2024 3:24 PM CDT) us Scanner OTHER Final Result * POTASSIUM (12/29/2024 1:33 PM CDT) Only the most recent of5 resultswithin the time period is included. POTASSIUM 4.3 3.5 - 5.1 mmol/L 12/29/2024 7:51 PM CDT [facility] Blood BLOOD SPECIMEN / Unknown Venipuncture / Unknown 12/29/2024 1:33 PM CDT 12/29/2024 1:39 PM CDT Lorraine Aceves MD CHEMISTRY Final Res ult Performing Organization Address [facility] Co de Phone Number [facility] [address] [place] [address], * (ABNORMAL) CREATININE (12/29/2024 1:33 PM CDT) Only the most recent of2 resultswithin the time period is included. eGFR 50(L) >90 mL/min/1.7 3m2 12/29/2024 2:11 PM CDT [facility] Comment:As of 2021, eG FR is calculated by the CKD-EPI creatinine equation without race adjustment. eGFR can be influenced by muscle mass, exercise, and diet. The reported eGFR is an estimation only and is only applicable if the renal function is stable. CREATININE 1.37(H) 0.70 - 1.20 mg/dL 12/29/2024 2:11 PM CDT [facility] Blood BLOOD SPECIMEN / Unknown Venipuncture / Unknown 12/29/2024 1:33 PM CDT 12/29/2024 1:39 PM CDT us Lorraine Aceves MD CHEMISTRY Final Res ult Performing Organization Address City/[facility]/ZIP Co de Phone Number [facility] [address] [place] [id number], [place] * SCAN-CARDIAC STRIP (12/29/2024 8:50 AM CDT) us Scanner OTHER Final Result * SCAN-CARDIAC STRIP (12/29/2024 5:17 AM CDT) us Scanner OTHER Final Result * SCAN-CARDIAC STRIP (12/28/2024 10:18 PM CDT) us Scanner OTHER Final Result * PACER ROLF DUAL CHAMBER WO REPROG (12/28/2024 7:08 AM CDT) Narrative Iglesia Chowdhury MD - 12/28/2024 7:08 AM CDT Iglesia Chowdhury MD 12/29/2024 8:25 AM PACEMAKER EVALUATION REPORT December 28, 2024 Normal pacemaker function. Lead trends stable. No AT/AF nor VT detections. Last EF 60-65% per Echo on 12/23/24. AP 59.1%, [employer]PUT[employer]ER[employer]IEUT[employer]NT 0.2%. Battery initializing. Indication for Pacemaker: First degree AV block, Bilateral BBB Primary MD: RADHA Saab Implanting MD: Iglesia Chowdhury MD DEVICE DATA [facility] Paramedic Medtronic: Model [place] XT DR MRI [id number] SN: [id number] Implant Date 12/27/2024 LEAD DATA Atrial Lead: [facility] Paramedic Medtronic: Model Secure Select [id number] - 69 cm Implant Date 12/27/2024 RV Lead: [facility] Paramedic Medtronic: Model CapSureFix Novus [id number] - 52 cm Implant Date 12/27/2024 Advisory: None Location of evaluation: [facility] Reason for evaluation: Routine, POD1 C&T MEASUREMENTS Atrial Sensing - P wave: 1-1.8 mV Atrial Capture: 0.5 V @ 0.4 ms Atrial Lead Impedance: 380 ohms Ventricular Sensing - R wave: > 20 mV RV Capture: 0.5 V @ 0.4 ms Ventricular Lead Impedance: Right - 722 ohms Underlying rhythm: Sinus Bradycardia at 45 bpm with intact conduction DIAGNOSTIC DATA - since 12/27/24 Atrial paced: 59.1% Ventricular paced: 0.2% Atrial episodes (AF web alerts ON for >6 hours): None Associated symptoms: n/a Ventricular episodes (detects >150 bpm x 4 beats): None Associated symptoms: n/a Histogram: appropriate heart rate distribution for hospital stay Magnet rate: 85 bpm Battery voltage: 3.17 V Estimated battery longevity: Initializing FINAL PARAMETERS Mode: AAI <=> DDD Lower rate: 50 bpm Upper rate: 130/130 bpm AV Delay: 180/150 ms Mode Switch: 150 bpm Rate Response: MS only, Low 3/3 Atrial - Amplitude: Adaptive 3.5 V Pulse width: 0.4 ms Sensitivity: 0.15 mV Refractory: Auto 250 ms Polarity: Bipolar Right Ventricular - Amplitude: Adaptive 3.5 V Pulse width: 0.4 ms Sensitivity: 0.9 mV Polarity: Bipolar Changes made: RA sensitivity increased to 0.15 mV d/t lower P wave measurements. No FFRW noted. Patient education post-device implant complete. Discussed incision care, signs and symptoms of infection, including redness, drainage, swelling, fever, and chills, & activity restrictions. Also discussed indication for implant and device mechanics. Education folder containing device booklet, ID card and incision care sheet was reviewed and given to patient to take home at discharge. Patient verbalized understanding the above and is agreeable with plan of care as described. Patient was given [employer] business card and encouraged to call if he has any concerns or questions in the future. Follow up: Patient instructed to see PCP on 01/05. 2.5 month remote made for 03/03. 4.5 month post-implant apt made for 05/20 in [facility] [place] booked out. Routine follow up: Every 3-4 month remote with annual clinic every May in [place]. DELON EnglishN, RN Nurse Clinician II [facility] Pacemaker/ICD Clinic [phone] us Iglesia Chowdhury MD CARDIAC SERVICES ORD F inal Result * XR Chest PA and Lateral (12/28/2024 6:27 AM CDT) Only the most recent of2 resultswithin the time period is included. Anatomical Region Laterality Modality CHEST, THORAX, Lung, HEART Digit al Radiography 12/28/2024 4:35 PM CDT Narrative 12/28/2024 4:35 PM CDT For Patients: As a result of the Century Cures Act, medical imaging exams and procedure reports are released immediately into your electronic medical record. You may view this report before your referring provider. If you have questions, please contact your health care provider. INDICATION: Post pacemaker TECHNIQUE: Two view chest. FINDINGS: Normal cardiac and mediastinal silhouette. Left cardiac pacer leads are intact median sternotomy. No pneumothorax. Lungs are hyperinflated. Dictated by Padmini Vasyl, MD @ Dec 28 2024 4:35PM (Electronically Signed) [email or web address] Procedure Note Padmini Fallon MD - 12/28/2024 For Patients: As a result of the Cures Act, medical imagingexams and procedure reports are released immediately into your electronicmedical record. You may view this report before your referring provider.If you have questions, please contact your health care provider. INDICATION: Post pacemaker TECHNIQUE: Two view chest. FINDINGS: Normal cardiac and mediastinal silhouette. Left cardiac pacer leads areintact median sternotomy. No pneumothorax. Lungs are hyperinflated. Dictated by Padmini Fallon MD @ Dec 28 2024 4:35PM (Electronically Signed) [email or web address] us Iglesia Chowdhury MD GENERAL IMAGING Final Result * SCAN-CARDIAC STRIP (12/28/2024 5:00 AM CDT) us Scanner OTHER Final Result * SCAN-CARDIAC STRIP (12/27/2024 10:06 PM CDT) us Scanner OTHER Final Result * EP PPM (12/27/2024 9:50 AM CDT) Anatomical Region Laterality Modality Other 12/27/2024 9:50 AM CDT Narrative Transcriptions Iglesia Chowdhury MD - 12/27/2024 10:42 AM CDT [facility] Electrophysiology Implant Report Name: EMILY GIBBS Event Date: 12/27/2024 Excellian ID #: [id number] Date: 1940 Gender: Male Age: 84 [facility] #: [id number] Procedure Performed By: IGLESIA CHOWDHURY [facility] Referring Physician: Implant Procedure Type Dual Chamber Permanent Pacemaker Implant Recommendations / Plan Routine post pacemaker implant care with post-procedure PA/LAT chest x-rayand device interrogation tomorrow morning. Pre-Operative Diagnosis ? 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 Same as Pre-operative diagnosis Indications ? Same as Pre-operative diagnosis Brief Patient History Recent PTCA noted to have ecg with RBBB, vertical axis (left posteriorfasicular block), long TN and intermittent LBBB. On this basis pacingrecommended. Consent & [place] Protocol [place] protocol was followed. TIME OUT conducted just prior tostarting procedure confirmed patient identity, site/side, procedure,patient position, and availability of correct equipment and implants (ifapplicable). The risks, benefits, and alternatives of the procedure were discussed withthe patient and written informed consent was obtained. Procedure Description The patient arrived at the Cardiac Electrophysiology Laboratory in thefasting, non-sedated state. Informed consent was previously obtained frompatient, who understood indications, risks, and benefits of the procedure.The patient was prepped and draped in a sterile fashion. Moderatesedation was administered by the anesthesia service. The Left Pectoralregion was anesthetized. An incision was made in the anesthetizedregion, and using a combination of blunt and electrocautery dissection,the pocket for the generator was created. Under direct fluoroscopy, theAxillary Vein was punctured and wires were inserted. Ventricular andatrial leads were implanted using fluoroscopic guidance. Aftersatisfactory sensing and pacing thresholds were confirmed, the leads weresecured in the pocket using Ethibond sutures. The pocket was rinsed withantibiotic solution and the generator was introduced into the field. Theleads were connected to the pacemaker generator. The generator wasinserted into the pocket. The incision was closed in 3 layers usingVicryl sutures. Skin closure was reinforced with surgical adhesive. Thepatient tolerated the procedure well without complications and left theelectrophysiology laboratory in stable condition. Implantable Device Specifications Pulse Generator Detail Implanted Status Pocket Location [facility] Paramedic Model Serial Number 12/27/2024 Implanted Left Pectoral [employer] Andreea XT DR HALL [id number] Lead Detail Implanted Status Chamber Location [facility] Paramedic Model Serial Number 12/27/2024 Implanted Right Atrium Septum [employer] Secure [id number] 12/27/2024 Implanted Right Atrium Right Appendage [employer]CapSureFix Novus [id number] Measurement Pcb Design Engineer P/R Wave (mV) Threshold (V) Pulse Width (msec) Resistance (ohms) High Output Stim Result RA 3.5 1.3 0.4 698 No Stimulation @ 10 V RV 7.2 1.5 0.4 1259 No Stimulation @ 10 V Device Settings Mode Lower Rate (bpm) Upper Rate (bpm) AAI-DDD 50 130 SENAIT Delay: 150 msec PAV Delay: 180 msec Lead Amplitude (V) Pulse Width (msec) Sensitivity (mV) Configuration Atrial 3.5 0.4 0.3 Bipolar RV 3.5 0.4 0.9 Bipolar Features Magnet Use: Enabled Wireless Telemetry: Active Feature Status Detail Mode Switch On 150 Procedure(s) Performed ? Insertion of new or replacement PPM with transvenous electrode (s);Atrial and Ventricular Procedure Detail Estimated Blood Loss: < 50 ml Specimen Collected: None Level of Sedation Achieved: Moderate Staff Name Role Iglesia Chowdhury Implanting Aerly James RN Nurse Oscar Sanderson RN Nurse Keli Dnoahue NP [facility] EPT Licensed Marriage And Family Therapist Jose M Marcus Anesthesiologist Medications Ordered and Administered Start Time Stop Time Medication Dose Units Route Ordered By Given By The anesthesia service monitored the patient?s conscious sedation duringthe procedure. The medications listed above were verbally ordered by me and read back tome as documented above. Refer to the hemodynamic procedure log report for additional casedetails. electronically signed on 12/27/2024 10:42:59 AM with status of Final Iglesia Chowdhury MD Implanting Pig Machine Operator [address] [address] (p) [phone](f) us Iglesia Chowdhury MD CV IMAGING Edited Result - Final * SCAN-CARDIAC STRIP (12/27/2024 7:48 AM CDT) us Scanner OTHER Final Result * (ABNORMAL) CBC WITH AUTO DIFFERENTIAL (12/27/2024 7:15 AM CDT) Only the most recent of2 resultswithin the time period is included. WHITE BLOOD COUNT 8.4 4.5 - 11.0 thou/cu mm 12/27/2024 8:22 AM CDT [facility] RED BLOOD COUNT 4.31 4.30 - 5.90 mil/cu mm 12/27/2024 8:22 AM T [facility] HEMOGLOBIN 12.3(L) 13.5 - 17.5 g/dL 12/27/2024 8:[address] [facility] HEMATOCRIT 37.9 37.0 - 53.0 % 12/27/2024 8:[address] [facility] MCV 88 80 - 100 fL 12/27/2024 8:[address] [facility] MCH 28.5 26.0 - 34.0 pg 12/27/2024 8:[address] [facility] MCHC 32.5 32.0 - 36.0 g/dL 12/27/2024 8:[address] [facility] RDW 12.9 11.5 - 15.5 % 12/27/2024 8:[address] [facility] PLATELET COUNT 167 140 - 440 thou/cu mm 12/27/2024 8:[address] [facility] MPV 10.1 6.5 - 11.0 fL 12/27/2024 8:[address] [facility] NRBC 0.0 % 12/27/2024 8:[address] [facility] ABS NRBC 0.0 thou /cu mm 12/27/2024 8:[address] [facility] % NEUT 62.0 % 12/27/2024 8:[address] [facility] % LYMPH 24.4 % 12/27/2024 8:[address] [facility] % MONO 9.4 % 12/27/2024 8:[address] [facility] % EOS 3.2 % 12/27/2024 8:[address] [facility] % BASO 0.6 % 12/27/2024 8:22 AM CDT [facility] % IMMATURE GRAN (METAS,MYELOS,TN OS) 0.4 % 12/27/2024 8:22 AM CDT [facility] ABSOLUTE NEUTROPHILS 5.2 1.7 - 7.0 thou/cu mm 12/27/2024 8:22 AM CDT [facility] ABSOLUTE LYMPHOCYTES 2.1 0.9 - 2.9 thou/cu mm 12/27/2024 8:22 AM CDT [facility] ABSOLUTE MONOCYTES 0.8 <0.9 thou/cu mm 12/27/2024 8:22 AM CDT [facility] ABSOLUTE EOSINOPHILS 0.3 <0.5 thou/cu mm 12/27/2024 8:22 AM CDT [facility] ABSOLUTE BASOPHILS 0.1 <0.3 thou/cu mm 12/27/2024 8:22 AM CDT [facility] ABSOLUTE IMMATURE GRANULOCYTES(MET ,MYELOS,PROS) 0.0 <0.3 thou/cu mm 12/27/2024 8:22 AM CDT [facility] Blood BLOOD SPECIMEN / Unknown Venipuncture / Unknown 12/27/2024 7:15 AM CDT 12/27/2024 8:13 AM CDT us Isaac Figueroa MD HEMATOLOGY Fin al Result [facility] [address] [place] [address], * SCAN-CARDIAC STRIP (12/27/2024 3:00 AM CDT) us Scanner OTHER Final Result * SCAN-CARDIAC STRIP (12/26/2024 8:12 PM CDT) us Scanner OTHER Final Result * SCAN-CARDIAC STRIP (2024 4:15 PM CDT) us Scanner OTHER Final Result * EKG 12 Lead - PRN (2024 1:31 PM CDT) Only the most recent of6 resultswithin the time period is included. Pathologist [facility] Interpretation Sinus rhythm Left bundle branch block Abnormal ECG When compared with ECG of 23-Dec-2024 16:44, Left bundle branch block is new BEYOND NOW Ventricular Rate 65 BPM BEYOND NOW Atrial Rate 67 BPM BEYOND NOW P-R Interval ms BEYOND NOW QRS Duration 156 ms BEYOND NOW QT 452 ms BEYOND NOW QTc 470 ms BEYOND NOW P [place] degrees BEYOND NOW R [place] 80 degrees BEYOND NOW T [place] 222 degrees BEYOND NOW 2024 1:31 PM CDT 12/26/2024 5:09 PM CDT us Nayeli Cabello MD EKG ORD Lea l Result Performing Organization Address City/State/[facility] Co de Phone Number [place]YOND NOW [place], [place] * SCAN-CARDIAC STRIP (12/24/2024 4:31 PM CDT) us Scanner OTHER Final Result * SCAN-CARDIAC STRIP (12/24/2024 8:07 AM CDT) us Scanner OTHER Final Result * (ABNORMAL) CBC with Platelets no Differential (12/24/2024 6:41 AM CDT) Pathologist [facility] WHITE BLOOD COUNT 12.1(H) 4.5 - 11.0 thou/cu mm 12/24/2024 7:25 AM CDT [facility] [employer] RED BLOOD COUNT 3.80(L) 4.30 - 5.90 mil/cu mm 12/24/2024 7:25 AM CDT [facility] HEMOGLOBIN 10.8(L) 13.5 - 17.5 g/dL 12/24/2024 7:25 AM CDT [facility] HEMATOCRIT 32.7(L) 37.0 - 53.0 % 12/24/2024 7:25 AM CDT [facility] MCV 86 80 - 100 fL 12/24/2024 7:25 AM CDT [facility] MCH 28.4 26.0 - 34.0 pg 12/24/2024 7:25 AM CDT [facility] MCHC 33.0 32.0 - 36.0 g/dL 12/24/2024 7:25 AM CDT [facility] RDW 13.1 11.5 - 15.5 % 12/24/2024 7:25 AM CDT [facility] PLATELET COUNT 167 140 - 440 thou/cu mm 12/24/2024 7:25 AM CDT [facility] MPV 10.0 6.5 - 11.0 fL 12/24/2024 7:25 AM CDT [facility] NRBC 0.0 % 12/24/2024 7:25 AM CDT [facility] ABS NRBC 0.0 thou /cu mm 12/24/2024 7:25 AM CDT [facility] Blood BLOOD SPECIMEN / Unknown Non-Lab Venipuncture / Unknown 12/24/2024 6:41 AM CDT 12/24/2024 7:20 AM CDT us Enedelia Leonard MD HEMATOLOGY Fin al Result [facility] [address] [place] [id number], * Lipid Panel (12/24/2024 6:41 AM CDT) Only the most recent of2 resultswithin the time period is included. CHOLESTEROL,TOTAL 182 100 - 199 mg/dL 12/24/2024 7:51 AM CDT [facility] Comment: Cholesterol, Total Reference Ranges Desirable <200 mg/dL Borderline 200-239 mg/dL High >=240 mg/dL TRIGLYCERIDES 66 <150 mg/dL 12/24/2024 7:51 AM CDT [facility] HDL CHOLESTEROL 58 >40 mg/dL 7:51 AM CDT [facility] NON-HDL CHOLESTEROL 124 <145 mg/dl 12/24/2024 7:51 AM CDT [facility] CHOL/HDL RATIO 3.14 <4.50 12/24/2024 7:51 AM CDT [facility] LDL CHOLESTEROL 111 <=130 mg/dL 12/24/2024 7:51 AM CDT [facility] VLDL CHOLESTEROL 13 <=30 mg/dL 12/24/2024 7:51 AM CDT [facility] PROVIDER ORDERED STATUS RANDOM 12/24/2024 7:51 AM CDT [facility] Blood BLOOD SPECIMEN / Unknown Non-Lab Venipuncture / Unknown 12/24/2024 6:41 AM CDT 12/24/2024 7:20 AM CDT Enedelia Leonard MD CHEMISTRY Fin al Result [facility] [address] [place] [address], [place] * SCAN-CARDIAC STRIP (12/24/2024 2:52 AM CDT) us Scanner OTHER Final Result * SCAN-CARDIAC STRIP (12/23/2024 5:55 PM CDT) us Scanner OTHER Final Result * ECHO TTE LIMITED WO CONTRAST W COLOR W LTD DOPPLER (12/23/2024 5:54 PM CDT) AORTIC VALVE MEAN PG 5 mmHg EJECTION FRACTION 63 % LVEDD 4.1 cm EJECTION FRACTION 60 - 65% Anatomical Region Laterality Modality Ultrasound 12/23/2024 4:55 PM CDT Narrative 12/24/2024 6:32 AM CDT ECHOCARDIOGRAM EMILY GIBBS : 1940 83 years Study Date: 12/23/2024 4:55:46 PM Gender: M BP: 152/81 mmHg Height: 180.00 cm BSA: 1.90 m Weight: 71.00 kg Tech: BS Referring MD: NAYELI CABELLO Site: [facility] Reading Location: [facility] Patient Location: Inpatient. Procedure: 2D, Color Doppler and Spectral Doppler. Indication for study: Stress Chest Pain Cardiac Rhythm: Normal sinus.Study quality: Good. Final Impressions: Limited Echocardiogram performed 1. Normal LV size, normal global systolic function with an estimated EF of 60 - 65%. 2. Inferior wall and basal septum segment are abnormal. 3. Mild biatrial enlargement 4. The aortic valve is trileaflet and sclerotic, no stenosis and no regurgitation. 5. The mitral valve is sclerotic, no mitral regurgitation. Chamber Sizes and Function Normal left ventricular size, normal global systolic function with an estimated EF of 60 - 65%. Left atrial size is mildly enlarged. Right ventricular cavity size is normal, global systolic RV function is normal. RV wall thickness is normal. The right atrium is mildly enlarged. The sinus of Valsalva is normal sized. The ascending aorta is normal sized. The inferior wall and basal septum segment are akinetic. Valves, RV Pressures and Diastolic Function The aortic valve is trileaflet and sclerotic, no stenosis and no regurgitation. The mitral valve is sclerotic, no mitral regurgitation. The mitral valve peak velocity is 1.56 m/s and the mean gradient is 3.0 mmHg. Indeterminate pattern of LV diastolic filling. The tricuspid valve is normal in structure, not evident tricuspid regurgitation. Unable to assess right ventricular systolic pressure. The pulmonic valve is not well visualized. Masses, Effusion, Shunts The inferior vena cava is not well visualized. No left to right shunting was detected by limited color flow Doppler interrogation of the interatrial septum. MEASUREMENTS AND CALCULATIONS 2-D Measurements and LV Function: LVID (d) 4.1 cm LV FS% (2D) 23 % LVID (s) 3.1 cm LVOT diameter 2.0 cm IVS (d) 1.1 cm HR 85 bpm LVPW (d) 1.2 cm Ao Sinus 3.7 cm Ao Sinus ULN 4.1 cm * Asc Ao ULN 4.3 cm * * Input age outside of range, reported values correspond to Age = 78 Diastology: Mitral Tissue Doppler E Peak 2.02 m/s e', Septum 0.20 m/s DT 160 msec e', Lateral 0.13 m/s E/e' Average 12.10 Aortic Valve: Vmax 1.7 m/s CASSIDY (V) 3.16 cm VTI 0.31 m CASSIDY (I) 2.96 cm LVOT V max 1.8 m/s Max PG 12 mmHg LVOT VTI 0.29 m Mean PG 5 mmHg SV 90 ml Dim Index 0.94 SV index 48 ml/m CO 7.7 l/min CI 4.1 l/min/m Mitral Valve: MVA 4.7 cm MV P 1/2 46 msec MV Mean G 3 mmHg Tricuspid Valve and estimated PA pressures: TAPSE 1.7 cm Pulmonic Valve: PV Vmax 2.2 m/s PV meanG 10 mmHg PV VTI 0.40 m PV AT 108 msec . This study was interpreted by an [facility] accredited facility. Final Procedure Note Cheng Plata MD - 12/24/2024 ECHOCARDIOGRAM EMILY GIBBS : 1940 83 years Study Date: 12/23/2024 4:55:46 PM Gender: M BP: 152/81 mmHg Height: 180.00 cm BSA: 1.90 m Weight: 71.00 kg Tech: BS Referring MD: NAYELI CABELLO Site: [facility] Reading Location: [facility] Patient Location: Inpatient. Procedure: 2D, Color Doppler and Spectral Doppler. Indication for study: Stress Chest Pain Cardiac Rhythm: Normal sinus.Study quality: Good. Final Impressions: Limited Echocardiogram performed 1. Normal LV size, normal global systolic function with an estimated EFof 60 - 65%. 2. Inferior wall and basal septum segment are abnormal. 3. Mild biatrial enlargement 4. The aortic valve is trileaflet and sclerotic, no stenosis and noregurgitation. 5. The mitral valve is sclerotic, no mitral regurgitation. Chamber Sizes and Function Normal left ventricular size, normal global systolic function with anestimated EF of 60 - 65%. Left atrial size is mildly enlarged. Rightventricular cavity size is normal, global systolic RV function is normal.RV wall thickness is normal. The right atrium is mildly enlarged. Thesinus of Valsalva is normal sized. The ascending aorta is normal sized.The inferior wall and basal septum segment are akinetic. Valves, RV Pressures and Diastolic Function The aortic valve is trileaflet and sclerotic, no stenosis and noregurgitation. The mitral valve is sclerotic, no mitral regurgitation. Themitral valve peak velocity is 1.56 m/s and the mean gradient is 3.0 mmHg.Indeterminate pattern of LV diastolic filling. The tricuspid valve isnormal in structure, not evident tricuspid regurgitation. Unable to assessright ventricular systolic pressure. The pulmonic valve is not wellvisualized. Masses, Effusion, Shunts The inferior vena cava is not well visualized. No left to right shuntingwas detected by limited color flow Doppler interrogation of theinteratrial septum. MEASUREMENTS AND CALCULATIONS 2-D Measurements and LV Function: LVID (d) 4.1 cm LV FS% (2D)23 % LVID (s) 3.1 cm LVOT diameter2.0 cm IVS (d) 1.1 cm HR85 bpm LVPW (d) 1.2 cm Ao Sinus 3.7 cm Ao Sinus ULN 4.1 cm * Asc Ao ULN 4.3 cm * * Input age outside of range, reported values correspond to Age = 78 Diastology: Mitral Tissue Doppler E Peak 2.02 m/s e', Septum 0.20 m/s DT 160 msec e', Lateral 0.13 m/s E/e' Average 12.10 Aortic Valve: Vmax 1.7 m/s CASSIDY (V) 3.16 cm VTI 0.31 m CASSIDY (I) 2.96 cm LVOT V max 1.8 m/s Max PG 12 mmHg LVOT VTI 0.29 m Mean PG 5 mmHg SV 90 ml Dim Index 0.94 SV index 48 ml/m CO 7.7 l/min CI 4.1 l/min/m Mitral Valve: MVA 4.7 cm MV P 1/2 46 msec MV Mean G 3 mmHg Tricuspid Valve and estimated PA pressures: TAPSE 1.7 cm Pulmonic Valve: PV Vmax 2.2 m/s PV meanG 10 mmHg PV VTI 0.40 m PV AT 108 msec . This study was interpreted by an [facility] accredited facility. Final us Nayeli Cabello MD ECHO ORD Lea gonzales Result * (ABNORMAL) ACTIVATED CLOTTING TIME [id number] ACT (12/23/2024 3:31 PM CDT) Only the most recent of4 resultswithin the time period is included. ACTIVATED CLOTTING TIME, POCT 146(H) 74 - 125 sec 2024 6:22 AM CDT [facility] Blood BLOOD SPECIMEN / Unknown 12/23/2024 3:31 PM CDT 2024 6:22 AM CDT us Isaac Figueroa MD HEMATOLOGY Fin al Result [facility] [address] [place] [id number], * CVL CORONARY ANGIOGRAM POSS PCI (12/23/2024 3:20 PM CDT) Anatomical Region Laterality Modality Other 12/23/2024 3:20 PM CDT us Provider Referring CV IMAGING Final Result * CVL CORONARY ANGIOGRAM POSS PCI (12/23/2024 3:20 PM CDT) Anatomical Region Laterality Modality Other 12/23/2024 3:20 PM CDT Narrative Transcriptions Terence Hamilton MD - 12/23/2024 3:03 PM CDT [facility] Cardiac Catheterization Report Name: EMILY GIBBS Event Date: 12/23/2024 08:25 Harrietian ID #: [id number] RAFI #: [id number] Patient Class: Inpatient Diagnostic Physician: TERENCE HAMILTON [facility] Interventional Physician: TERENCE HAMILTON [facility] Referring Physician: Primary Care Physician: MARVIN HARLEY Date: 1940 Gender: Male Age: 83 Summary/Conclusions PRESENTATION / INDICATIONS * Urgent * NonSTEMI VASCULAR ACCESS * Using ultrasound guidance and a percutaneous technique, the right commonfemoral artery was accessed. Ultrasound was used to confirm vesselpatency, localizing needle into the lumen of the vessel. An image wassaved for the medical record. SPECIAL PROCEDURES * Right femoral arteriotomy was successfully closed utilizing a closuredevice DIAGNOSTIC SUMMARY ? The LMCA is free of significant disease. ? 100% stenosis in the Proximal LAD ? 100% stenosis in the Mid LAD ? 70% stenosis in the Mid LAD after MOSLEY insertion. LAD is a smallcaliber vessel in the mid to distal segments. Diffusely diseased. Type ILAD. Best for medical therapy. ? 70% in-stent stenosis in the 1st Diagonal. It is supplied by the veingraft. Medical therapy with clinical follow up. ? The Circumflex has patent stent(s) from a previous procedure in the midand distal segments. ? 80% stenosis in the Proximal Circumflex ? The RCA is dominant. ? 100% stenosis in the Proximal RCA ? The MOSLEY graft from the MOSLEY to the Mid LAD is patent. See above LADdescription for distal LAD info. Difficult to engage MOSLEY givenangulation of left subclavian from aorta. ? The SVG graft from the Aorta to the 1st Diagonal has diffuse luminalirregularities and has patent stent(s) from a previous procedure. ? 50% stenosis in the Aorta graft to 1st Diagonal LEFT VENTRICULAR FUNCTION ? LV Pressure = 176/20. INTERVENTION ? Successful 3.5mm x 12mm Balloon and 3.5mm x 15mm Drug Eluting Stent toProximal Circumflex, post stenosis 0% aspirin intermediate project manager Plavix x one year Consent & [place] Protocol The risks, benefits, and alternatives of the procedure were discussed withthe patient and written informed consent was obtained. [place] protocol was followed. TIME OUT conducted just prior tostarting procedure confirmed patient identity, site/side, procedure,patient position, and availability of correct equipment and implants (ifapplicable). Staff Name Title TERENCE HAMILTON Diagnostic Pig Machine Operator Sydni Moore RN, Alicia CVT Scrub WetEdgar callejas CVT Scrub Cameron Keita CVT Monitor Silvia Jim CVT Licensed Marriage And Family Therapist Enedelia Leonard Fellow TERENCE HAMILTON Head Turning Machine Operator Procedures ? Ultrasound Guided Vascular Access ? Coronary Angiogram ? Femoral Angio for Possible Closure Device ? Stent Placement, Drug Eluting [PCI] ? Femoral Closure Device ? Saphenous Vein Graft Angio ? Internal Mammary Angiogram ? Left Heart Cath No Ventriculogram Diagnostic Findings * Left Main Coronary Artery ? The LMCA is free of significant disease. * Left Anterior Descending ? 100% stenosis in the Proximal LAD. ? 100% stenosis in the Mid LAD. ? 70% stenosis in the Mid LAD. ? 70% in-stent stenosis in the 1st Diagonal. * Circumflex ? The Circumflex has patent stent(s) from a previous procedure in themid and distal segments. ? 80% stenosis in the Proximal Circumflex. The lesion has a ORLANDO flowof 3. * Right Coronary Artery ? The RCA is dominant. ? 100% stenosis in the Proximal RCA. * Coronary Artery Bypass Grafts ? The MOSLEY graft to the Mid LAD is patent. ? The SVG graft to the 1st Diagonal has diffuse luminal irregularitiesand has patent stent(s) from a previous procedure. ? 50% stenosis in the Aorta graft to 1st Diagonal. Lesion Information Lesion # Vessel Segment Lesion Length Lesion Details 2 Proximal Circumflex 10 Culprit Lesion Proximal LAD Proximal RCA 1st Diagonal Aorta graft to 1st Diagonal Mid LAD Mid LAD Hemodynamics State: Baseline Pressures (mmHg) Site Systolic Diastolic End Diastolic A Wave V Wave Mean AO 178 72 93 LV 176 8 20 LV 169 3 18 AO 162 59 94 Interventional Results * Circumflex ? Successful intervention to the Proximal Circumflex 80% lesion with afinal stenosis of 0% using a 3.5mm x 12mm Balloon and a 3.5mm x 15mmDrug Eluting Stent. The final ORLANDO flow was 3. Interventional Devices Lesion # Vessel Segment Type Name Max Pressure 2 Proximal Circumflex Balloon BLLN 3.5X12MM NC EMERGE RX 2 Proximal Circumflex Drug Eluting Stent COURTNEY DONNA [place] RX [id number] Procedure Details Estimated Blood Loss: < 30 ml Specimen Collected: None Level of Sedation Achieved: Moderate Procedure Start: 08:25 Procedure End: 09:55 Procedure Time: 90 min Fluoroscopy Time: 29.4 min Cumulative Air Kerma: 840 mGy DAP: 5608 uGy/M2 Contrast: Omnipaque (low-osmolar), 150 ml Physiologic Data Weight: 70.5 kg BSA: 1.88 m2 Vascular Access Time Access Sheath Size 08:28 Right Femoral Artery, sheath inserted Complications ? No Complications Medications Ordered and Administered Start Time Stop Time Medication Dose Units Route Ordered By Given By 08:25 Fentanyl 50 mcg IV Terence Hamilton Rachelle RN 08:26 Versed 1 mg IV Terence Hamilton Rachelle RN 08:26 NS 0.9 400 ml IV PoulTerence winchester Rachelle RN 08:26 1% Lidocaine 10 ml Subcut Terence Hamilton Jaskanwal 09:07 Heparin 6000 units IV PouloseTerence Rachelle RN 09:30 Heparin 4000 units IV Terence Hamilton Rachelle RN 09:34 Plavix 600 mg PO Terence Hamilton Rachelle RN 09:45 Fentanyl 25 mcg IV PoulTerence winchester Rachelle RN 09:45 Versed 0.5 mg IV PoulTerence winchester Rachelle RN 09:52 Hydralazine 5 mg IV Terence Hamilton Rachelle RN 09:58 Hydralazine 5 mg IV Terence Hamilton Rachelle RN I personally monitored the patient?s conscious sedation during theprocedure. Conscious sedation starts with the first sedation medication dose ofFentanyl or Versed and ends when the procedure is completed, the patientis stable for recovery status, and the physician or other qualified healthcare professional providing the sedation ends personal qvtrzzjbxsqftv-pe-ixko time with the patient. The medications listed above were verbally ordered by me and read back tome as documented above. Refer to the procedure log report for additional case details. electronically signed on 12/23/2024 3:03:51 PM with status of Final Terence Hamilton MD [place] [id number] [place] [phone] (p) [phone](f) Terence Hamilton MD - 12/23/2024 3:58 PM CDT [facility] Cardiac Catheterization Report Name: EMILY GIBBS Event Date: 12/23/2024 15:20 Km ID #: [id number] RAFI #: [id number] Patient Class: Inpatient Diagnostic Physician: TERENCE HAMILTON [facility] Referring Physician: Date: 1940 Gender: Male Age: 83 Summary/Conclusions PRESENTATION / INDICATIONS * Recent NSTEMI Recent COURTNEY proximal LCX Recurrent chest pain VASCULAR ACCESS * Using ultrasound guidance and a percutaneous technique, the right commonfemoral artery was accessed. Ultrasound was used to confirm vesselpatency, localizing needle into the lumen of the vessel. An image wassaved for the medical record. SPECIAL PROCEDURES * Right femoral arteriotomy was successfully closed utilizing a closuredevice Emergent relook for recurrent chest pain. DIAGNOSTIC SUMMARY ? The LMCA is free of significant disease. ? 100% stenosis in the Proximal LAD ? 100% stenosis in the Mid LAD ? 70% stenosis in the Mid LAD ? 70% stenosis in the 1st Diagonal ? The Circumflex is free of significant disease and has patent stent(s)from a previous procedure. ? 100% stenosis in the Proximal RCA. not injected this episode. ? The MOSLEY graft from the MOSLEY to the Mid LAD is patent. Distal LAD isdiseased as before. MOSLEY not selectively engaged. ? The SVG graft from the Aorta to the 1st Diagonal is patent. Distaldiagonal with 70% in stent stenosis as before. Med rx. ? Left to right collaterals. Best for ongoing medical therapy and clinical follow up. Discussed with Dr. Butts. Consent & [place] Protocol [place] protocol was followed. TIME OUT conducted just prior tostarting procedure confirmed patient identity, site/side, procedure,patient position, and availability of correct equipment and implants (ifapplicable). Staff Name Title TERENCE HAMILTON Diagnostic Pig Machine Operator Enedelia Leonard Fellow Sydni Moore RN Nurse Cameron Keita CVT Scrub Wetter, Edgar CVT Licensed Marriage And Family Therapist GersonLuz ELEVATOR CONSTRUCTOR HELPER Licensed Marriage And Family Therapist Stevenson, Ara CVT Monitor Procedures ? Ultrasound Guided Vascular Access ? Coronary Angiogram ? Subclavian Arteriogram to visualize JAUN ? Saphenous Vein Graft Angio ? Femoral Closure Device Diagnostic Findings * Left Main Coronary Artery ? The LMCA is free of significant disease. * Left Anterior Descending ? 100% stenosis in the Proximal LAD. ? 100% stenosis in the Mid LAD. ? 70% stenosis in the Mid LAD. ? 70% stenosis in the 1st Diagonal. * Circumflex ? The Circumflex is free of significant disease and has patent stent(s)from a previous procedure. * Right Coronary Artery ? 100% stenosis in the Proximal RCA. * Coronary Artery Bypass Grafts ? The MOSLEY graft to the Mid LAD is patent. ? The SVG graft to the 1st Diagonal is patent. Lesion Information Lesion # Vessel Segment Lesion Length Lesion Details 1st Diagonal Mid LAD Proximal LAD Proximal RCA Mid LAD Hemodynamics State: Baseline Pressures (mmHg) Site Systolic Diastolic End Diastolic A Wave V Wave Mean AO 135 62 81 Procedure Details Estimated Blood Loss: < 30 ml Specimen Collected: None Level of Sedation Achieved: Moderate Procedure Start: 15:20 Procedure End: 15:44 Procedure Time: 24 min Fluoroscopy Time: 4.5 min Cumulative Air Kerma: 260 mGy DAP: 1497 uGy/M2 Contrast: Omnipaque (low-osmolar), 40 ml Physiologic Data Actual VO2: 290.34 Weight: 70.5 kg BSA: 1.88 m2 Vascular Access Time Access Sheath Size 15:20 Right Femoral Artery, sheath inserted Complications ? No Complications Medications Ordered and Administered Start Time Stop Time Medication Dose Units Route Ordered By Given By 15:20 Fentanyl 50 mcg IV Terence Hamilton Rachelle RN 15:20 Versed 1 mg IV Terence Hamilton Rachelle RN 15:20 O2 2 l per min Nasal cannula Terence Hamilton RachelleRN 15:20 1% Lidocaine 10 ml Subcut Terence Hamilton Jaskanwal 15:39 Hydralazine 10 mg IV Terence Hamilton Rachelle RN 15:42 Fentanyl 25 mcg IV Terence Hamilton Rachelle RN 15:42 Versed 0.5 mg IV Terence Hamilton Rachelle RN 15:43 Lidocaine 1% w/Epi 1:100,000 5 ml Subcut Terence Hamilton Jaskanwal I personally monitored the patient?s conscious sedation during theprocedure. Conscious sedation starts with the first sedation medication dose ofFentanyl or Versed and ends when the procedure is completed, the patientis stable for recovery status, and the physician or other qualified healthcare professional providing the sedation ends personal ctxdfapcryrmzh-ed-iuxb time with the patient. The medications listed above were verbally ordered by me and read back tome as documented above. Refer to the procedure log report for additional case details. electronically signed on 12/23/2024 3:58:58 PM with status of Final Terence Hamilton MD [facility] [address] [place] [address] [phone] (p) [phone](f) us Provider Referring CV IMAGING Edited Result - Final * SCAN-CARDIAC STRIP (12/23/2024 11:40 AM CDT) us Scanner OTHER Final Result * SCAN-CARDIAC STRIP (12/23/2024 11:40 AM CDT) us Scanner OTHER Final Result * SCAN-CARDIAC STRIP (12/23/2024 7:23 AM CDT) us Scanner OTHER Final Result * (ABNORMAL) APTT (12/23/2024 6:27 AM CDT) Only the most recent of3 resultswithin the time period is included. APTT 94(H) 25 - 36 sec 12/23/2024 6:57 AM CDT [facility] [employer] [facility] Blood BLOOD SPECIMEN / Unknown Venipuncture / Unknown 12/23/2024 6:27 AM CDT 12/23/2024 6:42 AM CDT Narrative [facility] - 12/23/2024 6:57 AM CDT Therapeutic Range: 59-89 seconds us Nayeli Cabello MD HEMATOLOGY Lea l Result [facility] [address] [place] [address], [place] * (ABNORMAL) TROPONIN T (HS) ONE TIME (12/23/2024 4:33 AM CDT) Only the most recent of2 resultswithin the time period is included. TROPONIN T HS 399(H) 6-15 ng/L ng/L 12/23/2024 5:26 AM CDT [facility] Blood BLOOD SPECIMEN / Unknown Venipuncture / Unknown 12/23/2024 4:33 AM CDT 12/23/2024 4:55 AM CDT Adore Guaman NP CHEMISTRY Final Result [facility] [address] [place] [address], [place] * SCAN-CARDIAC STRIP (12/23/2024 4:10 AM CDT) Scanner OTHER Final Result * (ABNORMAL) TROPONIN T (HS) ACUTE W/2HR REFLEX (12/23/2024 2:23 AM CDT) Only the most recent of2 resultswithin the time period is included. Pathologist [facility] TROPONIN T HS 383(H) 6-15 ng/L ng/L 12/23/2024 2:54 AM CDT [facility] Blood BLOOD SPECIMEN / Unknown Venipuncture / Unknown 12/23/2024 2:23 AM CDT 12/23/2024 2:31 AM CDT Narrative [facility] - 12/23/2024 2:54 AM CDT hs-cTnT (Elecsys Troponin T Gen 5) concentration (s) above the sex-specific 99th percentile (16 ng/L or greater for males or 11 ng/L or greater for females) are indicative of myocardial injury. If initial hs-cTnT <=100 ng/L at presentation, a 0h/2h ABSOLUTE (ng/L) delta change (rising or falling) of >=10 ng/L suggests a significant change, whereas a 0h/2h delta change <=3 ng/L suggests no significant change. If initial hs-cTnT >100 ng/L at presentation, a 0h/2h/ RELATIVE (percent, %) delta change of 20% is suggested to distinguish patients with acute vs. chronic myocardial injury. There are multiple etiologies that can cause hs-cTnT increases above the 99th percentile (myocardial injury) other than acute myocardial infarction. Clinical context and careful clinical evaluation are critical for diagnosis and risk-stratification. The diagnosis of acute myocardial infarction requires a rising and/or falling pattern in hs-cTnT concentrations with at least one value above the sex-specific 99th percentile PLUS at least one of the following clinical criteria: ischemic symptoms, new or presumed new significant ST-T wave changes or new LBBB, development of pathological Q waves, imaging evidence of new loss of viable myocardium or new regional wall motion abnormality, or identification of intracoronary atherothrombosis or an acute angiographic culprit on coronary angiography. In appropriate low-risk patients with a non-ischemic electrocardiogram without active chest pain with a symptom onset >3-hours without recurrence, a single initial hs-cTnT<6 ng/L identifies patient with a very low risk in emergency department patient population. Adore Guaman NP CHEMISTRY Final Result [facility] [address] [place] [address], * PLATELET COUNT (12/23/2024 2:23 AM CDT) [facility] Signature PLATELET COUNT 143 140 - 440 thou/cu mm 12/23/2024 2:37 AM CDT [facility] MPV 9.7 6.5 - 11.0 fL 12/23/2024 2:37 AM CDT [facility] Blood BLOOD SPECIMEN / Unknown Venipuncture / Unknown 12/23/2024 2:23 AM CDT 12/23/2024 2:31 AM CDT [facility] LAB[facility] - 12/23/2024 2:37 AM CDT Obtain before initiating IV heparin therapy if not done within previous 24 hours. Obtain before initiating IV heparin therapy if not done within previous 24 hours. Nayeli Cabello MD HEMATOLOGY Lea l Result Performing Organization Address [facility] de Phone Number [facility] [address] [address], [place] * (ABNORMAL) PROTIME-INR (12/23/2024 2:23 AM CDT) Only the most recent of2 resultswithin the time period is included. Pathologist [facility] INR 1.2 <1.3 12/23/2024 3:09 AM CDT [facility] PROTIME 13.4(H) 10.6 - 12.4 sec 12/23/2024 3:09 AM CDT [facility] Blood BLOOD SPECIMEN / Unknown Venipuncture / Unknown 12/23/2024 2:23 AM CDT 12/23/2024 2:31 AM CDT Narrative [facility] - 12/23/2024 3:09 AM CDT Therapeutic Range 2.0-3.0 for most anticoagulated patients 2.5-3.5 or 4.0 for high risk patients The INR is only used for patients on stable oral anticoagulant therapy. It makes no significant contribution to the diagnosis or treatment of patients whose Protime is prolonged for other reasons. INR results are increased when heparin levels exceed 1.0 U/mL, which corresponds to an aPTT >125 seconds if the patient is on UFH. Nayeli Cabello MD HEMATOLOGY Lea l Result Performing Organization Address [facility] Co de Phone Number [facility] [address] [address], [place] * SCAN-CARDIAC STRIP (12/23/2024 12:00 AM CDT) Narrative 12/23/2024 12:00 AM CDT Ordered by an unspecified provider. Other Clinical Staff OTHER Final Resul t * Screening hemoglobin A1c FOR ADD ON (12/22/2024 5:17 PM CDT) HEMOGLOBIN A1C SCREENING 5.5 <=6.4 % 12/23/2024 7:18 AM CDT [facility] Blood BLOOD SPECIMEN / Unknown Venipuncture / Unknown 12/22/2024 5:17 PM CDT 12/22/2024 5:25 PM CDT [facility] LABORATORY - 12/23/2024 7:18 AM CDT (<5.7%) Normal (5.7% to 6.4%) Indicates prediabetes (>=6.5%) Confirms diabetes Falsely low levels may be seen with: Recent Transfusion, Recent Significant Blood Loss, Hemolytic Diseases, or Falsely elevated levels may be seen with: Untreated Anemias, Splenectomy us Nayeli Cabello MD CHEMISTRY Lea l Result Performing Organization Address City/[facility]/ZIP Co de Phone Number [facility] [address] [place] [address] * LIPASE (12/22/2024 5:17 PM CDT) LIPASE 27.4 13.0 - 60.0 IU/L 12/22/2024 6:13 PM CDT [facility] Blood BLOOD SPECIMEN / Unknown Venipuncture / Unknown 12/22/2024 5:17 PM CDT 12/22/2024 5:25 PM CDT us Bozena Burden MD CHEMISTRY Lea l Result [facility] [address] [place] [address] * (ABNORMAL) HEPATIC FUNCTION PANEL (12/22/2024 5:17 PM CDT) ALBUMIN 4.3 4.0 - 4.9 g/dL 12/22/2024 6:13 PM CDT [facility] PROTEIN,TOTAL 6.6 6.0 - 8.0 g/dL 12/22/2024 6:13 PM CDT [facility] BILIRUBIN,TOTAL 0.4 0.0 - 1.2 mg/dL 12/22/2024 6:13 PM CDT [facility] BILIRUBIN,DIRECT 0.2 0.0 - 0.2 mg/dL 12/22/2024 6:13 PM CDT [facility] BILIRUBIN,INDIRE CT 0.2 0.2 - 0.8 mg/dL 12/22/2024 6:13 PM CDT [facility] ALK PHOSPHATASE 89 40 - 129 IU/L 12/22/2024 6:13 PM CDT [facility] ALT (SGPT) 5(L) 10 - 50 IU/L 12/22/2024 6:13 PM CDT [facility] AST (SGOT) 26 10 - 50 IU/L 12/22/2024 6:13 PM CDT [facility] Blood BLOOD SPECIMEN / Unknown Venipuncture / Unknown 12/22/2024 5:17 PM CDT 12/22/2024 5:25 PM CDT Bozena Burden MD CHEMISTRY Lea l Result [facility] [address] [place] [address] * PATH TISSUE EXAM (12/11/2024 3:00 PM CDT) Case Report Pathology Report Case: [id number] Authorizing Provider: Vickie Yoo MD Collected: 12/11/2024 1500 Ordering Location: [facility] Received: 12/11/2024 1531 [facility] Pathologist: Marcin Lazo MD Specimen: Skin, left zygomatic cheek 12/16/2024 2:55 PM CDT [facility] Final Diagnosis SKIN, LEFT ZYGOMATIC CHEEK, BIOPSY: 1. Suture granuloma and scar, consistent with site of prior procedure 2. No evidence for atypical melanocytic proliferation or malignancy 12/16/2024 2:55 PM CDT [facility] ENTRAL LABORATORY at 1455 CDT Comment Clinical photo is reviewed concurrently with histomorphology. 12/16/2024 2:55 PM CDT [facility] Clinical Information Rule out recurrent melanoma. 12/16/2024 2:55 PM CDT [facility] Gross Description A) Received in formalin, labeled with the patient's name and L zygomatic cheek, is a 0.4 x 0.4 x 0.1 cm skin punch biopsy. The skin surface velasquez and smooth. The specimen is inked red, bisected and entirely submitted in one cassette. STN 12/12/2024 12/16/2024 2:55 PM CDT [facility] Microscopic Description The final diagnosis is based on microscopic examination of appropriate sections of all specimens. Within the dermis there is polarizable foreign material which is eliciting a granulomatous response which includes multinucleated giant cells. The presence of red ink is confirmed on tissue sections. 12/16/2024 2:55 PM CDT [facility] Additional Information Interpreted at [facility] - [address] [place] [address] [address], [place] [address] 12/16/2024 2:55 PM CDT [facility] Other SPECIMEN FROM SKIN / Unknown Non-Blood / Unknown 12/11/2024 3:00 PM CDT 12/11/2024 3:31 PM CDT us Vickie Yoo MD PATHOLOGY/CYTOLOGY Final Result [facility] [address] [place] [address], [place] from Last 3 Months Insurance MEDICARE PB ONLY [place] FED EMP MEDICARE PART A HB ONLY MEDICARE PART B HB ONLY Advance Directives * Full Code (Latest Code Status on File) Date Activated Date Inactivated Comments 12/23/2024 1:58 AM 12/30/2024 11:58 AM Question Answer Comments Code Status Discussion: Reviewed Preferences Care Teams Career Professional Relationship Specialty Start Date End Date Marvin Harley PA [address] [place], [place] [id number] [address] PCP - General Physician Computer Systems Consultant 08/20/24
--- OUTSIDE RECORDS SUMMARY | 2025-01-03 17:49 | XMS_ITS | Encounter Summary ---
Author Organization [facility] Address [address] [address] [place] [address] Care Team Providers Care Gravel Truck Driver Name Role Phone Provider, No Attributed RESOURCE Unavailable Unavailable Outside, Provider Primary Care Provider Unavaila ble Encounter Details Date Type Department Care Team (Latest Contact Info) Description 11/21/2022 Transcribe Orders [facility] [address] [place] [address] Carrie Riggins, TECHNICAL CONSULTANT [address] [place] [address] Disease of cardiovascular system (Primary Dx) Social History Tobacco Use Types Packs/Day Years [...] on file documented as of this encounter Visit Diagnoses Diagnosis Disease of cardiovascular system- Primary Unspecified cardiovascular disease documented in this encounter Care Teams Gravel Truck Driver Relationship Specialty Start Date End Date Provider, No Attributed, RESOURCE [address] PCP - Attributed Provider 07/11/16 Outside, Provider PCP - General 08/04/19 documented as of this encounter
--- OUTSIDE RECORDS SUMMARY | 2025-01-03 17:49 | XMS_ITS | Clinical Summary ---
Author Organization [facility] Address [address] [place] [address] [address] [place] [address] Care Team Providers Care Correspondence Renew Clerk Name Role Phone Provider, No Attributed RESOURCE Unavailable Unavailable Outside, Provider Primary Care Provider Unavaila ble Allergies Active Allergy Reactions Criticality Noted Date Comments Penicillin Unknown/Not Verified 06/06/2012 Rosuvastatin Calcium Other (Specify in Comments) 06/06/2012 didn't feel good Medications ibuprofen (MOTRIN) 400 mg tablet Take 400 mg by mouth Every 6 hours as needed. Active aspirin 81 mg chewable tablet Take 81 mg by mouth 1 time per day. Active LACTOBACILLUS PO Take 2 capsules by mouth 1 time per day. Active omega-3 fatty acids (FISH OIL) 1000 mg capsule Take 1,000 mg by mouth 1 time per day. Active Lycopene 15 MG CAPS Take 1 tablet by mouth 1 time per day. Active YL CHROMIUM PICOLINATE PO Take 1 capsule by mouth 1 time per day. Active GRAPE SEED EXTRACT PO Take 1 capsule by mouth 1 time per day. Active multivitamin therapeutic with minerals (THERA-M) tablet Take 1 tablet by mouth 1 time per day. Active nitroglycerin (NITROSTAT) 0.4 mg sublingual tablet Dissolve 0.4 mg under the tongue as needed. Active Cholecalciferol (VITAMIN D3 PO) Take 1 capsule by mouth 1 time per day. Active MISC NATURAL PRODUCTS PO Take 1 tablet by mouth 1 time per day. Idoreal takes daily for thyroid Active MISC NATURAL PRODUCTS PO Take 1 capsule by mouth 1 time per day. Beta glucan Active MISC NATURAL PRODUCTS PO Take 1 capsule by mouth 1 time per day. Nutraview Active amLODIPine (NORVASC) 10 mg tablet Take 10 mg by mouth 1 time per day Active atorvaSTATin calcium (LIPITOR) 80 mg tablet Take 80 mg by mouth every night at bedtime Active clopidogrel (PLAVIX) 75 mg tablet Take 75 mg by mouth 1 time per day Active lisinopril (PRINIVIL, ZESTRIL) 10 mg tablet Take 10 mg by mouth 1 time per day Active HYDROcodone-acet aminophen (NORCO) 5-325 mg tabletIndication s:Rib pain on right side Take 1 tablet by mouth every 6 hours as needed for severe pain 15 tablet 3 Active Hospital, Clinic, or Other Facility Administered Medication Ordered Dose Route Frequency Start Date End Date Status lidocaine 2 % injection solution 100 mgIndications:Ingrown nail,Bunion,Dystrophic nail 100 mg INJ Now 03/19/2019 Active Active Problems Problem Noted Date Diagnosed Date 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 Hydrocele 11/18/2007 Social History Tobacco Use Types Packs/Day Years Used Date Smoking Tobacco: Former Cigarettes Q uit: 09/10/1959 Tobacco Cessation:Counseling Given: Not Answered Alcohol Use Standard Drinks/Week Comments No 0 [...] file Not on file Not on file Last Filed Vital Signs Vital Sign Reading Time Taken Comments Blood Pressure 176/84 10/07/2022 5:00 PM [employer] PROFESSOR Pulse 58 10/07/2022 5:00 PM [employer] PROFESS[employer] Temperature 36.7 C (98.1 F) 10/07/2022 3:50 PM [employer]S PROFESSOR Respiratory Rate 16 10/07/2022 5:00 PM [employer] PROFESSOR Oxygen Saturation 98% 10/07/2022 5:00 PM [employer]S PROFESSOR Inhaled Oxygen Concentration - - Weight 67.8 kg (149 lb 6.4 oz) 08/26/2022 8:25 P M [employer] PROFESSOR Height 177.8 cm (5' 10) 10/05/2022 3:00 PM [employer] PROFESSOR Body Mass Index 20.84 08/26/2022 8:25 PM [employer]IA [employer] PROFESSOR Plan of Treatment Health Maintenance Due Date Last Done Comments Pneumococcal Vaccine 50yr + (1 of 2 - PCV) 1957 TDAP/TD VACCINE (1 - Tdap) 12/26/1959 Zoster Vaccine (1 of 2) 1988 [employer] Directive document 12/26/2003 RSV Vaccine, Adult (1 - 1-dose 75+ series) 2013 Covid-19 Vaccine ( - 2023- season) 2024 Influenza Vaccine (#1) 2024 06/30/1993 Lipid Screening 12/29/2025 12/29/2024, 2 , 12/24/2024, Additional history exists Creatinine 12/30/2025 12/30/2024, 04/2 09/2024, 12/28/2024, Additional history exists Diabetes Screening 12/31/2027 12/30/2024, 0 12/29/2024, 12/28/2024, Additional history exists Hepatitis B Vaccine Aged Out No longe r eligible based on patient's age to complete this topic Procedures Procedure Name Priority Date/Time Associated Diagnosis Comments LIPID PANEL Routine 01/17/2024 9:36 AM CDT Coronary artery disease of [place] heart with stable angina pectoris, unspecified vessel or lesion type ([facility]) Hx of CABG Hyperlipidemia, unspecified hyperlipidemia type COMPREHENSIVE METABOLIC PANEL STAT 10/07/2022 3:57 PM MEDIA [employer] PROFESSOR from Last 3 Months or Most Recently Relevant to Health Maintenance Results * (ABNORMAL) LIPID PANEL (01/17/2024 9:36 AM CDT) Cholesterol 224(H) 0 - 200 mg/dL 01/17/2024 9:56 AM CDT [facility] Triglyceride 84 0 - 200 mg/dL 01/17/2024 9:56 AM CDT [facility] HDL 64 >=40 mg/dL 01/17/2024 9:56 AM CDT [facility] LDL 143(H) 5 - 99 mg/dL 01/17/2024 9:56 AM CDT [facility] Chol/HDL Risk Ratio 3.50 2.40 - 5.60 Ratio 01/17/2024 9:56 AM CDT [facility] Fasting Yes Yes, No, Unknown 01/17/2024 9:56 AM CDT [facility] Blood BLOOD SPECIMEN / Unknown Venipuncture / Unknown 01/17/2024 9:36 AM CDT 01/17/2024 9:36 AM CDT us Oleksandr Beebe MD LAB BLOOD Final Result [facility] [address] [place] [address] * (ABNORMAL) COMPREHENSIVE METABOLIC PANEL (10/07/2022 3:57 PM MEDIA ARTS PROFESSOR) Pathologist [facility] Glucose 89 70 - 100 mg/dL 10/07/2022 4:38 PM MEDIA ARTS PROFESSOR [facility] BUN 19(H) 7 - 18 mg/dL 10/07/2022 4:38 PM MEDIA ARTS PROFESSOR [facility] Creatinine 1.09 0.70 - 1.30 mg/dL 10/07/2022 4:38 PM MEDIA ARTS PROFESSOR [facility] BUN/Creatinine Ratio 17.4 10.0 - 25.0 10/07/2022 4:38 PM MEDIA ARTS PROFESSOR [facility] Sodium 140 136 - 145 meq/L 10/07/2022 4:38 PM MEDIA ARTS PROFESSOR [facility] Potassium 4.6 3.5 - 5.1 meq/L 10/07/2022 4:38 PM MEDIA ARTS PROFESSOR [facility] Chloride 105 98 - 107 meq/L 10/07/2022 4:38 PM MEDIA ARTS PROFESSOR [facility] CO2 28 21 - 32 meq/L 10/07/2022 4:38 PM MEDIA ARTS PROFESSOR [facility] Anion Gap with K 12 6 - 20 meq/L 10/07/2022 4:38 PM MEDIA ARTS PROFESSOR [facility] Calcium 9.0 8.5 - 10.1 mg/dL 10/07/2022 4:38 PM MEDIA ARTS PROFESSOR [facility] Protein Total 6.9 6.5 - 8.1 g/dL 10/07/2022 4:38 PM MEDIA ARTS PROFESSOR [facility] Albumin 3.7 3.4 - 5.0 g/dL 10/07/2022 4:38 PM MEDIA ARTS PROFESSOR [facility] Alkaline Phosphatase 97 46 - 116 U/L 10/07/2022 4:38 PM MEDIA ARTS PROFESSOR [facility] AST - SGOT 23 15 - 37 U/L 10/07/2022 4:38 PM MEDIA ARTS PROFESSOR [facility] ALT - SGPT 21 12 - 78 U/L 10/07/2022 4:38 PM MEDIA ARTS PROFESSOR [facility] Bilirubin Total 0.5 0.2 - 1.3 mg/dL 10/07/2022 4:38 PM MEDIA ARTS PROFESSOR [facility] Corrected Calcium 9.2 8.5 - 10.1 mg/dL 10/07/2022 4:38 PM MEDIA ARTS PROFESSOR [facility] Age 81 Years 10/07/2022 4:38 PM MEDIA ARTS PROFESSOR [facility] eGFRcr() 67 >=60 mL/min/1.7 3m2 10/07/2022 4:38 PM MEDIA ARTS PROFESSOR [facility] Blood BLOOD SPECIMEN / Unknown 10/07/2022 3:57 PM MEDIA [employer]S PROFESSOR 10/07/2022 3:57 PM [employer] PROFESSOR us Eren Marks PA-C LAB BLOOD Final Result [facility] [address] [place] [address] from Last 3 Months or Most Recently Relevant to Health Maintenance Care Teams Correspondence Renew Clerk Relationship Specialty Start Date End Date Provider, No Attributed, RESOURCE [address] PCP - Attributed Provider 07/11/16 Outside, Provider PCP - General 08/04/19
== END 2025-01-03 18:56 | disposition home or self-care (01) ==
PROVIDERS: Emergency Provider Internal Medicine; PCP Physician Assistant
DX: G89.18 Other acute postprocedural pain (principal); R07.89 Other chest pain; Z95.0 Presence of cardiac pacemaker
CPT/HCPCS: 36415; 76604; 80048; 85025; 87040; 93005; 99283; 99284